=== PATIENT | female | born 1960 | race American Indian/Alaskan Native ===

== ENCOUNTER 2018-03-05 18:44 | Emergency (ER) | payer MEDICAID ==
[2018-03-05 18:44] VITALS: BMI 24.7
[2018-03-05 19:24] VITALS: BP 140/100; PULSE 102; RESP 18; TEMP 98.4; O2SAT 99
--- NOTE | 2018-03-05 21:14 | C.PDOC ---
History Of Present Illness 57 y/o female presents to the ED complaining of pain to the left shoulder radiating to the left intercostal area in upper back for 2 weeks. Seen by her PMD 2 days ago and given steroid injection to the shoulder joint. Patient reports this helped a little, and she was discharged home with flexeril 5mg PO. States pain has recurred so she is here requesting pain meds. Otherwise she denies any CP, SOB, trauma, numbness, tingling, or extremity weakness. Patient reports PMHx of Arthritis, and states this pain feels similar. Time Seen by Provider: 03/05/18 19:54 Chief Complaint (Nursing): Back Pain History Per: Patient History/Exam Limitations: no limitations Onset/Duration Of Symptoms: Days (x14) Current Symptoms Are (Timing): Still Present Quality Of Discomfort: "Pain" Associated Symptoms: None Past Medical History Reviewed: Historical Data, Nursing Documentation, Vital Signs Vital Signs: Last Vital Signs Temp 98.4 F 03/05/18 19:15 Pulse 102 H 03/05/18 19:15 Resp 18 03/05/18 19:15 BP 140/100 H 03/05/18 19:15 Pulse Ox 99 03/05/18 22:54 - Medical History PMH: HTN, Hyperlipidemia Denies: Depression Surgical History: Tonsillectomy Denies: Pacemaker - [facility] Procedures APPLICATION OF SPLINT (11/04/03) CONTRAST AORTOGRAM (02/12/12) CORONAR ARTERIOGR-2 CATH (02/12/12) INJECT/INFUSE NEC (08/11/14) LEFT HEART CARDIAC CATH (02/12/12) LT HEART ANGIOCARDIOGRAM (02/12/12) Family History: States: No Known Family Hx - Social History Hx Tobacco Use: No Hx Alcohol Use: Yes (SOCIAL) Hx Substance Use: Yes - Immunization History Hx Tetanus Toxoid Vaccination: Yes (2015) Hx Influenza Vaccination: No Hx Pneumococcal Vaccination: No Review Of Systems Cardiovascular: Negative for: Chest Pain Respiratory: Negative for: Shortness of Breath Musculoskeletal: Positive for: Shoulder Pain (left), Back Pain (upper) Skin: Negative for: Rash, Bruising Neurological: Negative for: Weakness, Numbness, Incoordination, Other (tingling) Physical Exam - Physical Exam Appears: Well, Non-toxic, No Acute Distress Skin: Normal Color, Warm, Dry Head: Atraumatic, Normacephalic Eye(s): bilateral: Normal Inspection Neck: Normal ROM Chest: Symmetrical Extremity: Normal ROM (with full ROM of left shoulder), Tenderness (on palpation of the left lateral shoulder, left trapezius, and extending to left intercostal area at mid-axillar line), Capillary Refill (less than 2 sec), No Deformity, No Swelling Pulses: Left Radial: Normal, Right Radial: Normal Neurological/Psych: Oriented x3, Normal Speech ED Course And Treatment O2 Sat by Pulse Oximetry: 99 (RA) Pulse Ox Interpretation: Normal Progress Note: Toradol IM given for pain control. On re-evaluation patient is resting comfortably and remains afebrile, AAOx3, in no distress. Advised patient to continue ibuprofen or naproxen along with her flexeril at home. 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 - Scribe Statement The provider has reviewed the documentation as recorded by the Scribe (Alka Alejandro) All medical record entries made by the Scribe were at my direction and personally dictated by me. I have reviewed the chart and agree that the record accurately reflects my personal performance of the history, physical exam, medical decision making, and the department course for this patient. I have also personally directed, reviewed, and agree with the discharge instructions and disposition.
== END 2018-03-05 19:54 | disposition left against medical advice (07) ==
LOC: SUPCPDRO 18:44 → C.ER 18:44
DX: G89.29 Other chronic pain (principal); M25.512 Pain in left shoulder; E78.5 Hyperlipidemia, unspecified; I10 Essential (primary) hypertension
CPT/HCPCS: 96372; 99282; J1885

== ENCOUNTER 2018-04-09 11:21 | Inpatient (IN) | payer MEDICAID ==
[2018-04-09 11:21] VITALS: BMI 24.7
[2018-04-09] MEDS ORDERED: Albuterol 0.083% Inhal Sol (2.5 mg/3 mL) UD IH STA (11:53)
[2018-04-09] MEDS ORDERED: Albuterol 0.083% Inhal Sol (2.5 mg/3 mL) UD ONE (12:09)
[2018-04-09 12:23] LABS: BASO # 0.1 K/uL (0.0-0.2); BASO % 0.6 % (0.0-2.0); EOS # 0.1 K/uL (0.0-0.7); EOS % 0.4 % (0.0-4.0); HEMOGLOBIN 13.1 g/dL (11.0-16.0); LYMPH # 3.3 K/uL (1.0-4.3); MEAN CELL VOLUME 81.2 fL (81.0-99.0); MEAN CORPUSCULAR HEMOGLOBIN 26.1 pg (27.0-31.0); MEAN CORPUSCULAR HGB CONC 32.2 g/dL (33.0-37.0); MEAN PLATELET VOLUME 7.9 fL (7.2-11.7); MONO # 0.5 K/uL (0.0-0.8); MONO % 3.4 % (0.0-10.0); NEUT # 11.2 K/uL (1.8-7.0); NEUT % 73.6 % (50.0-75.0); NRBC % 0.1 % (0.0-2.0); RBC 5.02 Mil/uL (3.80-5.20); RED CELL DISTRIBUTION WIDTH 15.7 % (11.5-14.5); WHITE BLOOD COUNT 15.2 K/uL (4.8-10.8)
[2018-04-09 12:34] LABS: ALB/GLOB RATIO 1.6 (1.0-2.1); ALBUMIN 4.4 g/dL (3.5-5.0); ALT/SGPT 55 U/L (9-52); AST/SGOT 29 U/L (14-36); BLOOD UREA NITROGEN 18 mg/dL (7-17); GFR NON-AFRICAN AMERICAN > 60
[2018-04-09] MEDS ORDERED: Albuterol-Ipratrop 3 mg / 0.5 (3 ml) UD INH STA (12:34)
[2018-04-09 12:36] LABS: ABG ALLEN TEST POS; ARTERIAL BLOOD GAS HCO3 21.9 mmol/L (21-28); ARTERIAL BLOOD GAS O2 SAT 99.6 % (95-98); ARTERIAL BLOOD GAS PCO2 30 mm/Hg (35-45); ARTERIAL BLOOD GAS PH 7.42 (7.35-7.45); ARTERIAL BLOOD GAS PO2 115 mm/Hg (80-100); ARTERIAL BLOOD GAS TCO2 20.4 mmol/L (22-28)
[2018-04-09 12:46] LABS: B-TYPE NATRIURETIC PEPTIDE 4540 pg/mL (0-900); CK-MB 3.23 ng/mL (0.0-3.38)
--- NOTE | 2018-04-09 12:50 | RAD ---
HISTORY: SOB COMPARISON: No prior TECHNIQUE: Chest, one view. FINDINGS: Examination limited by habitus. LUNGS: Moderate interstitial prominence may reflect infection or edema. Please note that chest x-ray has limited sensitivity for the detection of pulmonary masses. PLEURA: No significant pleural effusion identified. No definite pneumothorax . CARDIOVASCULAR: Cardiomegaly. Atherosclerotic calcification of the aortic knob. OSSEOUS STRUCTURES: No acute osseous abnormality identified. VISUALIZED UPPER ABDOMEN: Unremarkable. OTHER FINDINGS: None. IMPRESSION: Moderate interstitial prominence may reflect infection or edema. Cardiomegaly.
[2018-04-09] MEDS ORDERED: Albuterol-Ipratrop 3 mg / 0.5 (3 ml) UD ONE (13:08)
[2018-04-09] MEDS ORDERED: Iodixanol 320 MG/ML 100 ML BOTTLE IV ONE ×2 (13:24→14:08)
--- NOTE | 2018-04-09 13:38 | C.PDOC ---
History Of Present Illness 57 year old female, whose PMHx includes Asthma, presents to the ED for evaluation of shortness of breath and wheezing which began 1 week ago. Patient states she was traveling with a friend to [place] in a truck and her symptoms began when they were heading back to [place]. Patient also reports pleuritic chest pain. She was evaluated by her PMD yesterday and given albuterol and a "steroid shot" without improvement. Patient denies fever, chills, cough, palpitations. She reports social history of smoking. Time Seen by Provider: 04/09/18 11:43 Chief Complaint (Nursing): Shortness Of Breath History Per: Patient History/Exam Limitations: no limitations Onset/Duration Of Symptoms: Days Current Symptoms Are (Timing): Still Present Quality: "Pain" Current Respiratory Medications: See Home Med List, Albuterol Severity: Moderate Associated Symptoms: Chest Pain (pleuritic ). denies: Fever, Chills, Bloody Cough, Productive Cough Additional History Per: Patient Past Medical History Reviewed: Historical Data, Nursing Documentation, Vital Signs Vital Signs: Last Vital Signs Temp 97.6 F 04/09/18 11:41 Pulse 125 H 04/09/18 13:03 Resp 26 H 04/09/18 13:03 BP 138/87 04/09/18 13:03 Pulse Ox 96 04/09/18 13:03 - Medical History PMH: HTN, Hyperlipidemia Surgical History: Tonsillectomy - [facility] Procedures APPLICATION OF SPLINT (11/04/03) CONTRAST AORTOGRAM (02/12/12) CORONAR ARTERIOGR-2 CATH (02/12/12) INJECT/INFUSE NEC (08/11/14) LEFT HEART CARDIAC CATH (02/12/12) LT HEART ANGIOCARDIOGRAM (02/12/12) Family History: States: No Known Family Hx - Social History Hx Tobacco Use: No Hx Alcohol Use: Yes (SOCIAL) Hx Substance Use: Yes - Immunization History Hx Tetanus Toxoid Vaccination: Yes (2016) Hx Influenza Vaccination: No Hx Pneumococcal Vaccination: No Review Of Systems Constitutional: Negative for: Fever, Chills Cardiovascular: Positive for: Chest Pain (pleuritic ). Negative for: Palpitations Respiratory: Positive for: Shortness of Breath, Wheezing. Negative for: Cough, Sputum Gastrointestinal: Negative for: Nausea, Vomiting, Abdominal Pain Genitourinary: Negative for: Dysuria, Hematuria Skin: Negative for: Rash Neurological: Negative for: Headache, Dizziness Physical Exam - Physical Exam Appears: Well, Non-toxic, No Acute Distress, Other (mildly tachypneic) Skin: Normal Color, Warm, Dry Head: Atraumatic, Normacephalic Eye(s): bilateral: Normal Inspection Oral Mucosa: Moist Neck: Supple Cardiovascular: Rhythm Regular, No Murmur, Other (tachycardic ) Respiratory: Accessory Muscle Use (mild ), Rales (bilaterally ), Wheezing (expiratory, bilaterally ), Other ((+) conversational dyspnea) Gastrointestinal/Abdominal: Normal Exam, Bowel Sounds, Soft, No Tenderness Extremity: Normal ROM, Pedal Edema (trace pitting edema to bilateral lower extremities ), No Calf Tenderness Pulses: Left Dorsalis Pedis: Normal, Right Dorsalis Pedis: Normal Neurological/Psych: Oriented x3 ED Course And Treatment - Laboratory Results Result Diagrams: 04/14/18 07:35 04/14/18 07:35 ECG: Interpreted By Me, Viewed By Me ECG Rhythm: Sinus Tachycardia ECG Interpretation: Abnormal Interpretation Of ECG: Sinus Tachycardia at rate 120bpm. Normal axis. T wave inversion in leads I, II, AVF, V5 and V6. No acute ST changes. Compared to EKG from 03/05/18; T wave inversions in leads I, II, and AVF are new. Rate From EC O2 Sat by Pulse Oximetry: 96 (on RA) Pulse Ox Interpretation: Normal - Other Rad CXR X-Ray: Viewed By Me, Read By Radiologist Interpretation: HISTORY: SOB. COMPARISON: No prior. TECHNIQUE: Chest, one view. FINDINGS: Examination limited by habitus. LUNGS: Moderate interstitial prominence may reflect infection or edema. Please note that chest x-ray has limited sensitivity for the detection of pulmonary masses. PLEURA: No significant pleural effusion identified. No definite pneumothorax . CARDIOVASCULAR: Cardiomegaly. Atherosclerotic calcification of the aortic knob. OSSEOUS STRUCTURES: No acute osseous abnormality identified. VISUALIZED UPPER ABDOMEN: Unremarkable. OTHER FINDINGS: None. IMPRESSION: Moderate interstitial prominence may reflect infection or edema. Cardiomegaly. - CT Scan/US CTA chest Other Rad Studies (CT/US): Read By Radiologist, Radiology Report Reviewed CT/US Interpretation: Date of service: 04/09/2018. CTA chest PE protocol. Indication: DYSPNEA, ELEVATED DDIMER, R/O PE. Technique: Contiguous axial images were obtained through the chest with intravenous contrast enhancement. Sagittal and coronal reconstructions were generated and reviewed. This CT exam was performed using 1 or more of the following dose reduction techniques: Automated exposure control, adjustment of the MAA and/or kV according to patient size, and/or use of iterative reconstruction technique. IV contrast: 100 cc Visipaque IV 320. . Radiation dose (DLP): 380.73 MGy-cm. Comparison: Chest x- ray performed 04/09/18. Findings: Visualized portions of the inferior thyroid gland appear unremarkable. The mediastinal and hilar vascular structures appear within normal limits. Mild cardiomegaly. Small pericardial effusion. No large central or segmental pulmonary embolus evident. Mild centrilobular emphysema. Small to moderate bilateral pleural effusions and associated compressive consolidations. No pneumothorax. 1.3 x 0.8 cm lobulated nodule within the inferior aspect of the right upper lobe abutting the fissure. Question presence of punctate calcification which would suggest benign hamartoma. Mild atherosclerotic calcifications of the aorta. Limited visualized portions of the upper abdomen: 3.9 x 3.7 cm low-density lesion measuring approximately 10 HU in the left hepatic lobe consistent with a cyst. Additional too small to jose cterize hepatic hypodensities statistically likely cysts or hemangiomas. Mild degenerative changes of the spine. Impression: Mild cardiomegaly. Small pericardial effusion. No large central or segmental pulmonary embolus evident. Mild centrilobular emphysema. Small to moderate bilateral pleural effusions and associated compressive consolidations. 1.3 x 0.8 cm lobulated nodule within the inferior aspect of the right upper lobe abutting the fissure. Question presence of punctate calcification which would suggest benign hamartoma. Recommend correlation with prior outside imaging if available. Further evaluation may be considered in the proper clinical setting with PET CT, follow-up CT in 3 months, 9 months, and 24 months, or if indicated biopsy. Limited visualized portions of the upper abdomen: 3.9 x 3.7 cm low-density lesion measuring approximately 10 HU in the left hepatic lobe consistent with a cyst. Additional too small to characterize hepatic hypodensities statistically likely cysts or hemangiomas. Progress Note: Bloodwork, CXR, CT Angio chest, EKG ordered and reviewed. Patient given Albuterol INH, Lasix IVP, and Solu-Medrol IVP. Reevaluation Time: 16:45 Reassessment Condition: Improved (On reassessment, patient still c/o feeling SOB, only minimally improved. 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 Disposition - Disposition Disposition: HOSPITALIZED Disposition Time: 16:58 Condition: STABLE - Clinical Impression Clinical Impression: COPD exacerbation, Pleural effusion, Pericardial effusion, Dyspnea, CHF (congestive heart failure) - Scribe Statement The provider has reviewed the documentation as recorded by the Scribe (Sendy Christian) Provider Attestation: All medical record entries made by the Scribe were at my direction and personally dictated by me. I have reviewed the chart and agree that the record accurately reflects my personal performance of the history, physical exam, medical decision making, and the department course for this patient. I have also personally directed, reviewed, and agree with the discharge instructions and disposition. Decision To Admit - Pt Status Changed To: Hospital Disposition Of: Inpatient - Admit Certification Admit to Inpatient:: After my assessment, the patient will require hospitalization for at least two midnights. This is because of the severity of symptoms shown, intensity of services needed, and/or the medical risk in this patient being treated as an outpatient. - InPatient: Physician Admission Certification: I certify that this patient requires 2 or more midnights of care for the following reason:: see notes - . Bed Request Type: Telemetry Admitting Physician: Lennox Gutierrez Patient Diagnosis: COPD exacerbation, CHF (congestive heart failure), Dyspnea, Pleural effusion, Pericardial effusion
[2018-04-09 14:46] VITALS: RESP 20
--- NOTE | 2018-04-09 16:30 | CT ---
Date of service: 04/09/2018 CTA chest PE protocol Indication: DYSPNEA, ELEVATED DDIMER, R/O PE Technique: Contiguous axial images were obtained through the chest with intravenous contrast enhancement. Sagittal and coronal reconstructions were generated and reviewed. This CT exam was performed using 1 or more of the following dose reduction techniques: Automated exposure control, adjustment of the MAA and/or kV according to patient size, and/or use of iterative reconstruction technique. IV contrast: 100 cc Visipaque IV 320 Radiation dose (DLP): 380.73 MGy-cm. Comparison: Chest x-ray performed 04/09/18 Findings: Visualized portions of the inferior thyroid gland appear unremarkable. The mediastinal and hilar vascular structures appear within normal limits. Mild cardiomegaly. Small pericardial effusion. No large central or segmental pulmonary embolus evident. Mild centrilobular emphysema. Small to moderate bilateral pleural effusions and associated compressive consolidations. No pneumothorax. 1.3 x 0.8 cm lobulated nodule within the inferior aspect of the right upper lobe abutting the fissure. Question presence of punctate calcification which would suggest benign hamartoma. Mild atherosclerotic calcifications of the aorta. Limited visualized portions of the upper abdomen: 3.9 x 3.7 cm low-density lesion measuring approximately 10 HU in the left hepatic lobe consistent with a cyst. Additional too small to characterize hepatic hypodensities statistically likely cysts or hemangiomas. Mild degenerative changes of the spine. Impression: Mild cardiomegaly. Small pericardial effusion. No large central or segmental pulmonary embolus evident. Mild centrilobular emphysema. Small to moderate bilateral pleural effusions and associated compressive consolidations. 1.3 x 0.8 cm lobulated nodule within the inferior aspect of the right upper lobe abutting the fissure. Question presence of punctate calcification which would suggest benign hamartoma. Recommend correlation with prior outside imaging if available. Further evaluation may be considered in the proper clinical setting with PET CT, follow-up CT in 3 months, 9 months, and 24 months, or if indicated biopsy. Limited visualized portions of the upper abdomen: 3.9 x 3.7 cm low-density lesion measuring approximately 10 HU in the left hepatic lobe consistent with a cyst. Additional too small to characterize hepatic hypodensities statistically likely cysts or hemangiomas.
[2018-04-09] MEDS ORDERED: Albuterol 0.083% Inhal Sol (2.5 mg/3 mL) UD IH PRN ×2 (18:17→20:45)
[2018-04-09] MEDS ORDERED: Pneumococcal 23-Valent Vaccine IM ONE (20:53)
[2018-04-09] MEDS ORDERED: Influenza Vaccine 60 MCG/0.5 ML SYR (3 yr & up) IM ONE (21:05)
[2018-04-09] MEDS ORDERED: Albuterol HFA 90 mcg/actuation (8 g) INH PRN ×2 (21:58→22:14)
--- NOTE | 2018-04-10 03:46 | CP.PCM.PCO ---
Addendum entered and electronically signed by Hernesto Butler 04/10/18 05:47: House Doctor Note. Paged for run of V-tach on monitor. Upon examination patient had no complaints with stable vitals w/ BP 130s/80s HR 110. EKG was ordered. EKG showed tachycardia. No further V-tach observed. Original Note:
[2018-04-10] MEDS: Albuterol 0.083% Inhal Sol (2.5 mg/3 mL) UD IH SCH ×3 (07:55→19:15)
[2018-04-10] MEDS ORDERED: Albuterol HFA 90 mcg/actuation (8 g) INH SCH (08:00)
[2018-04-10] MEDS: (Novolog) Insulin Aspart, Recombinant 100 u/ml 10 ml vial SC SCH ×4 (08:04→21:27)
[2018-04-10] MEDS: Enoxaparin 40 mg Syringe SC SCH (11:10)
--- NOTE | 2018-04-10 11:32 | CP.PCM.PN ---
Subjective - Date & Time of Evaluation Date of Evaluation: 04/10/18 Time of Evaluation: 11:32 - Subjective Subjective: This patient is a 57 year old female with a past medical history of impaired glucose tolerance, HTN, HLD, and CVA w/ left sided residual weakness who presented with complaints of worsening shortness of breath for 1 week. Patient stated she smelled some mold in the refrigerator and the next day started to feel short of breath. She denies any sick contacts or orthopnea. She did travel to [place] recently with a friend. Patient does admit to a 43 year smoking history. She smoked about a half a pack a day since she was 14 years old and recently reduced her smoking to about 4 cigarettes daily. Patient was evaluated by her PMD and was prescribed albuterol and given a steroid shot without improvement of her symptoms. Patient was also given steroid tablets but was told not to take it by the pharmacist. Today she states her shortness of breath is much improved. ROS POSITIVE: SOB, NEGATIVE: Sick contacts, orthopnea, fever, chills, chest pain, palpitations, abdominal pain, n/v changes in bowel habits, urinary symptoms. PMHx: As stated above PSHx: Cardiac Cath (2011) Allergeis: NKDA Social Hx: 21 pack years. FamHx: Son - [place], CAD. Objective - Vital Signs/Intake and Output Vital Signs (last 24 hours): Temp Pulse Resp BP Pulse Ox 97.7 F 119 H 20 138/91 H 94 L 04/10/18 07:10 04/10/18 07:10 04/10/18 07:10 04/10/18 07:10 04/10/18 07:10 - Medications Medications: Current Medications Albuterol (Ventolin Hfa 90 Mcg/Actuation (8 G)) 2 puff INH RQ12 PRN PRN Reason: Shortness of Breath Stop: 04/13/18 22:14 Albuterol Sulfate (Albuterol 0.083% Inhal Emma (2.5 Mg/3 Ml) Ud) 2.5 mg IH RQ4 [facility] Last Admin: 04/10/18 07:55 Dose: 2.5 mg Amitriptyline HCl (Elavil) 25 mg PO DAILY [facility] Last Admin: 04/10/18 10:26 Dose: 25 mg Amlodipine Besylate (Norvasc) 10 mg PO DAILY [facility] Last Admin: 04/10/18 10:26 Dose: 10 mg Aspirin (Aspirin Chewable) 81 mg PO DAILY [facility] Last Admin: 04/10/18 10:26 Dose: 81 mg Cyclobenzaprine HCl (Flexeril) 5 mg PO BID [facility] Last Admin: 04/10/18 10:26 Dose: 5 mg Enoxaparin Sodium (Lovenox) 40 mg SC DAILY [facility] Ferrous Sulfate (Feosol) 325 mg PO DAILY [facility] Last Admin: 04/10/18 10:26 Dose: 325 mg Insulin Aspart (Novolog) 0 unit SC ACHS [facility]; Protocol Last Admin: 04/10/18 08:04 Dose: 1 unit Metformin HCl (Glucophage) 500 mg PO BIDCC [facility] Last Admin: 04/10/18 10: Dose: 500 mg Methylprednisolone (Solu-Medrol) 40 mg IV Q6 [facility] Last Admin: 04/10/18 00:01 Dose: 40 mg Rosuvastatin Calcium (Crestor) 10 mg PO HS [facility] Zolpidem Tartrate (Ambien) 5 mg PO HS PRN PRN Reason: Insomnia - Labs Labs: 04/09/18 12:16 04/09/18 12:16 - Constitutional Appears: Non-toxic, No Acute Distress - Head Exam Head Exam: ATRAUMATIC, NORMAL INSPECTION, NORMOCEPHALIC - Eye Exam Eye Exam: EOMI - ENT Exam ENT Exam: Mucous Membranes Moist - Neck Exam Neck Exam: absent: Lymphadenopathy - Respiratory Exam Respiratory Exam: Clear to Ausculation Bilateral, NORMAL BREATHING PATTERN. absent: Accessory Muscle Use, Decreased Breath Sounds, Rhonchi, Wheezes, Stridor - Cardiovascular Exam Cardiovascular Exam: Tachycardia, REGULAR RHYTHM, +S1, +S2. absent: Clicks, JVD, Rubs, Murmur - GI/Abdominal Exam GI & Abdominal Exam: Soft, Normal Bowel Sounds. absent: Tenderness - Extremities Exam Extremities Exam: absent: Pedal Edema Additional comments: Left Foot Drop with Brace. - Neurological Exam Neurological Exam: Abnormal Gait (Uses wheelchair. ) - Psychiatric Exam Psychiatric exam: Normal Affect, Normal Mood - Skin Skin Exam: Dry, Intact, Normal Color, Warm Assessment and Plan - Assessment and Plan (Free Text) Assessment: 57 year old female with a past medical history of impaired glucose tolerance, HTN, HLD, and CVA w/ left sided residual weakness who presented with complaints of worsening shortness of breath for [address] scan on admission showed centrilobar emyphyseamatous changes. Patient admitted for evaluation and treatment of SOB likely 2/2 to COPD exacerbation. Plan: Shortness of Breath Likely 2/2 to COPD exacerbation. CXR (Admission): Moderate interstitial prominence may reflect infection or ed lourdes. Cardiomegaly. Chest CT (Admission): -Mild cardiomegaly. Small pericardial effusion. -No large central or segmental pulmonary embolus evident. -Mild centrilobular emphysema. Small to moderate bilateral pleural effusions and associated compressive consolidations. -1.3 x 0.8 cm lobulated nodule within the inferior aspect of the right upper lobe abutting the fissure. Question presence of punctate calcification which would suggest benign hamartoma. Recommend correlation with prior outside imaging if available. Further evaluation may be considered in the proper clinical setting with PET CT, follow-up CT in 3 months, 9 months, and 24 months, or if indicated biopsy. -Limited visualized portions of the upper abdomen: 3.9 x 3.7 cm low-density lesion measuring approximately 10 HU in the left hepatic lobe consistent with a cyst. Additional too small to characterize hepatic hypodensities statistically likely cysts or hemangiomas. EKG (Adm) Sinus tachycardia with ST and T wave changes: ECHO (04/10/18): PENDING READ Meds: Ventolin 2 puffs RQ12H PRN Albuterol Sulfate 2.5mg IH Q4 [facility] Solumedrol 40mg IV Q6H Hyperlipidemia Home Meds: Crestor 10 HS ASA 81 Daily Impaired Glucose Tolerance Home Meds: Metformin 500mg BID Meds: Insulin Sliding Scale Hypertension Home Meds: 10mg PO Daily Hx of Anemia Home Meds: Feosol 325mg PO Daily Tobacco Dependence Meds: Nicotine Patch. Insomnia Meds: Ambien 5mg PO HS PRN Proph Lovenox Heart Healthy Diet Dispo: Patient to be discharged PENDING results of ECHO Patient discussed with Dr. Matt Crump, PGY-2
--- NOTE | 2018-04-10 13:59 | CP.PCM.DIS ---
Provider - Provider Date of Admission: 04/09/18 16:58 Attending physician: Lennox Gutierrez MD Hospital Course - Lab Results Lab Results: Most Recent Lab Values WBC 15.2 K/uL (4.8-10.8) H 04/09/18 12:16 RBC 5.02 Mil/uL (3.80-5.20) 04/09/18 12:16 Hgb 13.1 g/dL (11.0-16.0) 04/09/18 12:16 Hct 40.8 % (34.0-47.0) 04/09/18 12:16 MCV 81.2 fL (81.0-99.0) 04/09/18 12:16 MCH 26.1 pg (27.0-31.0) L 04/09/18 12:16 MCHC 32.2 g/dL (33.0-37.0) L 04/09/18 12:16 RDW 15.7 % (11.5-14.5) H 04/09/18 12:16 Plt Count 436 K/uL (130-400) H 04/09/18 12:16 MPV 7.9 fL (7.2-11.7) 04/09/18 12:16 Neut % (Auto) 73.6 % (50.0-75.0) 04/09/18 12:16 Lymph % (Auto) 22.0 % (20.0-40.0) 04/09/18 12:16 Fisher % (Auto) 3.4 % (0.0-10.0) 04/09/18 12:16 Eos % (Auto) 0.4 % (0.0-4.0) 04/09/18 12:16 Baso % (Auto) 0.6 % (0.0-2.0) 04/09/18 12:16 Neut # (Auto) 11.2 K/uL (1.8-7.0) H 04/09/18 12:16 Lymph # (Auto) 3.3 K/uL (1.0-4.3) 04/09/18 12:16 Fisher # (Auto) 0.5 K/uL (0.0-0.8) 04/09/18 12:16 Eos # (Auto) 0.1 K/uL (0.0-0.7) 04/09/18 12:16 Baso # (Auto) 0.1 K/uL (0.0-0.2) 04/09/18 12:16 D-Dimer, Quantitative 331 ng/mlDDU (0-243) H 04/09/18 12:16 Puncture Site Rr 04/09/18 12:32 pCO2 30 mm/Hg (35-45) L 04/09/18 12:32 pO2 115 mm/Hg (80-100) H 04/09/18 12:32 HCO3 21.9 mmol/L (21-28) 04/09/18 12:32 ABG pH 7.42 (7.35-7.45) 04/09/18 12:32 ABG Total CO2 20.4 mmol/L (22-28) L 04/09/18 12:32 ABG O2 Saturation 99.6 % (95-98) H 04/09/18 12:32 ABG Base Excess -3.9 mmol/L (-2.0-3.0) L 04/09/18 12:32 Pardeep Test Pos 04/09/18 12:32 ABG Potassium 3.8 mmol/L (3.6-5.2) 04/09/18 12:32 Sodium 145.0 mmol/l (132-148) 04/09/18 12:32 Chloride 107.0 mmol/L (98-107) 04/09/18 12:32 Glucose 145 mg/dl (65-105) H 04/09/18 12:32 Lactate 1.5 mmol/L (0.7-2.1) 04/09/18 12:32 Sodium 144 mmol/L (132-148) 04/09/18 12:16 Potassium 4.4 mmol/L (3.6-5.2) 04/09/18 12:16 Chloride 107 mmol/L (98-107) 04/09/18 12:16 Carbon Dioxide 23 mmol/L (22-30) 04/09/18 12:16 Anion Gap 19 (10-20) 04/09/18 12:16 BUN 18 mg/dL (7-17) H 04/09/18 12:16 Creatinine 0.7 mg/dL (0.7-1.2) 04/09/18 12:16 Est GFR ( Amer) > 60 04/09/18 12:16 Est GFR (Non-Af Amer) > 60 04/09/18 12:16 POC Glucose (mg/dL) 198 mg/dL (65-110) H 04/10/18 06:21 Random Glucose 134 mg/dL (65-105) H 04/09/18 12:16 Calcium 9.0 mg/dl (8.6-10.4) 04/09/18 12:16 Total Bilirubin 0.7 mg/dL (0.2-1.3) 04/09/18 12:16 AST 29 U/L (14-36) 04/09/18 12:16 ALT 55 U/L (9-52) H 04/09/18 12:16 Alkaline Phosphatase 93 U/L (38-126) 04/09/18 12:16 Total Creatine Kinase 59 U/L (30-135) 04/09/18 12:16 CK-MB (Mass) 3.23 ng/mL (0.0-3.38) 04/09/18 12:16 Troponin I 0.0490 ng/mL (0.00-0.120) 04/09/18 12:16 NT-Pro-B Natriuret Pep 4540 pg/mL (0-900) H 04/09/18 12:16 Total Protein 7.1 g/dL (6.3-8.3) 04/09/18 12:16 Albumin 4.4 g/dL (3.5-5.0) 04/09/18 12:16 Globulin 2.7 gm/dL (2.2-3.9) 04/09/18 12:16 Albumin/Globulin Ratio 1.6 (1.0-2.1) 04/09/18 12:16 Arterial Blood Potassium 3.8 mmol/L (3.6-5.2) 04/09/18 12:32 Discharge Exam - Head Exam Head Exam: ATRAUMATIC, NORMAL INSPECTION, NORMOCEPHALIC Discharge Plan - Follow Up Plan Condition: GOOD Disposition: HOME/ ROUTINE Referrals: Lennox Gutierrez MD [Staff Provider] -
--- NOTE | 2018-04-10 16:34 | CARD ---
APPROVED REPORT Date of service: 04/10/2018 EXAM: Two-dimensional and M-mode echocardiogram with Doppler and color Doppler. Other Information Quality : GoodRhythm : INDICATION Pericardial Effusion Dyspnea Pleural Effusion Congestive Heart Failure COPD RISK FACTORS Hypertension 2D DIMENSIONS IVSd1.0 (0.7-1.1cm)LVDd5.7 (3.9-5.9cm) PWd1.1 (0.7-1.1cm)LA [id number] (18-58mL) LVDs5.3 (2.5-4.0cm)FS (%) 6.7 % LVEF (%)14.7 (>50%)LVEF (Smith's)16.40 % IVC0.00 cm M-Mode DIMENSIONS RVDd2.78 (2.1-3.2cm)Left Atrium (MM)4.42 (2.5-4.0cm) IVSd0.80 (0.7-1.1cm)Aortic Root2.71 (2.2-3.7cm) LVDd6.46 (4.0-5.6cm)Aortic Cusp Exc.2.09 (1.5-2.0cm) PWd0.80 (0.7-1.1cm)FS (%) 5 % LVDs6.11 (2.0-3.8cm)TAPSE1.8 cm LVEF (%)15 (>50%) Mitral Valve MV E Lgoosjwo122.2cm/sE/A ratio0.5ZELC171.49 cm/s TDI Lateral E' Peak V5.38cm/sMedial E' Peak V6.61cm/sE/Lateral E'23.3 E/Medial E'18.9 Tricuspid Valve TR Peak [id number]/sTR Peak Gr.[id number] LEFT VENTRICLE The Left Ventricle is borderline dilated. There is normal left ventricular wall thickness. The systolic function is severely impaired. There is global hypokinesis of the left ventricle. No left ventricle thrombus noted on this study. RIGHT VENTRICLE The right ventricle is borderline dilated. There is normal right ventricular wall thickness. Systolic function is borderline reduced. ATRIA The left atrium is mildly dilated. The right atrium size is normal. AORTIC VALVE The aortic valve is mildly thickened. There is trace aortic regurgitation. There is no aortic valvular stenosis. MITRAL VALVE The mitral valve is mildly thickened. There is no mitral valve stenosis. Mitral regurgitation is moderate. TRICUSPID VALVE The tricuspid valve is normal in structure. There is mild tricuspid regurgitation. There is mild to moderate pulmonary hypertension. PULMONIC VALVE The pulmonary valve is normal in structure. There is no pulmonic valvular regurgitation. GREAT VESSELS The aortic root is normal in size. PERICARDIAL EFFUSION There is a small circumferential pericardial effusion. <Conclusion> The Left Ventricle is borderline dilated. There is normal left ventricular wall thickness. The systolic function is severely impaired. There is global hypokinesis of the left ventricle. No left ventricle thrombus noted on this study. Mitral regurgitation is moderate. There is mild tricuspid regurgitation. There is mild to moderate pulmonary hypertension. There is a small circumferential pericardial effusion.
--- NOTE | 2018-04-10 19:47 | CARD ---
APPROVED REPORT Date of service: 04/09/2018 EKG Measurement Heart [id number] <Conclusion> Sinus tachycardia Possible Left atrial enlargement Possible Anterior infarct, age undetermined ST & T wave abnormality, consider inferolateral ischemia Abnormal ECG
[2018-04-11] MEDS: Albuterol 0.083% Inhal Sol (2.5 mg/3 mL) UD IH SCH ×2 (00:55→04:36)
[2018-04-11] MEDS: Albuterol 0.083% Inhal Sol (2.5 mg/3 mL) UD INH PRN ×2 (08:00→19:16)
[2018-04-11] MEDS: (Novolog) Insulin Aspart, Recombinant 100 u/ml 10 ml vial SC SCH ×4 (08:15→21:39)
[2018-04-11] MEDS: Enoxaparin 40 mg Syringe SC SCH (10:54)
[2018-04-11 11:03] LABS: BASO % 0.1 % (0.0-2.0); HEMOGLOBIN 12.3 g/dL (11.0-16.0); LYMPH # 0.7 K/uL (1.0-4.3); LYMPH % 4.7 % (20.0-40.0); MEAN CELL VOLUME 81.3 fL (81.0-99.0); MEAN CORPUSCULAR HEMOGLOBIN 26.1 pg (27.0-31.0); MEAN CORPUSCULAR HGB CONC 32.1 g/dL (33.0-37.0); MEAN PLATELET VOLUME 8.4 fL (7.2-11.7); MONO # 0.4 K/uL (0.0-0.8); MONO % 2.7 % (0.0-10.0); NEUT # 13.2 K/uL (1.8-7.0); NEUT % 92.5 % (50.0-75.0); PLATELET COUNT 429 K/uL (130-400); RBC 4.71 Mil/uL (3.80-5.20); RED CELL DISTRIBUTION WIDTH 16.2 % (11.5-14.5); WHITE BLOOD COUNT 14.3 K/uL (4.8-10.8)
[2018-04-11 11:38] LABS: ALB/GLOB RATIO 1.6 (1.0-2.1); ALT/SGPT 34 U/L (9-52); AST/SGOT 24 U/L (14-36); BLOOD UREA NITROGEN 24 mg/dL (7-17); CALCIUM 9.3 mg/dl (8.6-10.4); GFR NON-AFRICAN AMERICAN > 60
[2018-04-11 12:02] LABS: LYMPHOCYTE 4 % (20-40); MONOCYTE 1 % (0-10); NEUTROPHIL 95 % (50-75); PLATELET ESTIMATE NORMAL (NORMAL); TOTAL CELLS COUNTED 100
--- NOTE | 2018-04-11 12:28 | CP.PCM.CON ---
<John Hoffman - Last Filed: 04/11/18 14:42> History of Present Illness - History of Present Illness History of Present Illness: John Hoffman, PGY-[address] Lucio Ms. Luu is a 57 year old female with a past medical history of HTN, HLD, and CVA w/ left sided residual weakness who presented with complaints of worsening shortness of breath for 2 weeks. Patient endorses shortness of breath after walking up a few steps and 3 blocks and reports waking up at 2 am due to orthopnea. Patient admits to an extensive smoking history for 40+ years,and she smokes 5 cigarettes daily. Patient reports no current chest pain, palpitations, leg swelling. Patient reports her 38 year old son had a recent heart attack. Past Patient History - Infectious Disease Hx of Infectious Diseases: None - Tetanus Immunizations Tetanus Immunization: Unknown - Past Social History Smoking Status: Light Smoker < 10 Cigarettes Daily - CARDIAC Hx Hypertension: Yes - PULMONARY Hx Asthma: Yes - NEUROLOGICAL Hx Paralysis: No Other/Comment: stroke 08/10/16 result L drop foot - HEENT Hx HEENT Problems: No - RENAL Hx Chronic Kidney Disease: No - ENDOCRINE/METABOLIC Hx Diabetes Mellitus Type 2: Yes - HEMATOLOGICAL/ONCOLOGICAL Hx Blood Transfusions: No Hx Blood Transfusion Reaction: No - INTEGUMENTARY Hx Dermatological Problems: No - MUSCULOSKELETAL/RHEUMATOLOGICAL Hx Falls: No - GASTROINTESTINAL Hx Gastrointestinal Disorders: No - GENITOURINARY/GYNECOLOGICAL Hx Urinary Tract Infection: Yes - PSYCHIATRIC Hx Depression: No Hx Substance Use: Yes - SURGICAL HISTORY Hx Tonsillectomy: Yes - ANESTHESIA Hx Anesthesia: Yes Hx Anesthesia Reactions: No Hx Malignant Hyperthermia: No Has any member of the family had a problem w/ anesthesia?: No Meds Home Medications: Home Medication List Medication Instructions Recorded Confirmed Type Albuterol/Ipratropium [Combivent 1 puff IH DAILY 30 Days inhaler 04/10/18 Rx Respimat] Nicotine 14 mg/24 hr [Nicoderm CQ] 1 patch TD DAILY #30 patch 04/10/18 Rx Allergies/Adverse Reactions: Allergies Allergy/AdvReac Type Severity Reaction Status Date / Time No Known Allergies Allergy Verified 04/09/18 11:34 - Medications Medications: Current Medications Albuterol (Ventolin Hfa 90 Mcg/Actuation (8 G)) 2 puff INH RQ12 PRN PRN Reason: Shortness of Breath Stop: 04/13/18 22:14 Albuterol Sulfate (Albuterol 0.083% Inhal Emma (2.5 Mg/3 Ml) Ud) 2.5 mg INH RQ4 PRN PRN Reason: Shortness of Breath Last Admin: 04/11/18 08:00 Dose: 2.5 mg Amitriptyline HCl (Elavil) 25 mg PO DAILY [facility] Last Admin: 04/11/18 10:55 Dose: 25 mg Amlodipine Besylate (Norvasc) 10 mg PO DAILY [facility] Last Admin: 04/11/18 10:54 Dose: 10 mg Aspirin (Aspirin Chewable) 81 mg PO DAILY [facility] Last Admin: 04/11/18 10:54 Dose: 81 mg Carvedilol (Coreg) 3.125 mg PO BID [facility] Cyclobenzaprine HCl (Flexeril) 5 mg PO BID [facility] Last Admin: 04/11/18 10:55 Dose: 5 mg Enoxaparin Sodium (Lovenox) 40 mg SC DAILY [facility] Last Admin: 04/11/18 10:54 Dose: 40 mg Ferrous Sulfate (Feosol) 325 mg PO DAILY [facility] Last Admin: 04/11/18 10:54 Dose: 325 mg Insulin Aspart (Novolog) 0 unit SC [facility]; Protocol Last Admin: 04/11/18 08:15 Dose: 2 unit Lisinopril (Zestril) 5 mg PO DAILY [facility] Metformin HCl (Glucophage) 500 mg PO BIDCC [facility] Last Admin: 04/11/18 08:22 Dose: 500 mg Methylprednisolone (Solu-Medrol) 40 mg IV Q6 [facility] Last Admin: 04/11/18 06:38 Dose: 40 mg Nicotine (Nicoderm Cq) 1 patch TD DAILY [facility] Last Admin: 04/11/18 10:54 Dose: 1 patch Rosuvastatin Calcium (Crestor) 10 mg PO HS [facility] Last Admin: 04/10/18 21:33 Dose: 10 mg Zolpidem Tartrate (Ambien) 5 mg PO HS PRN PRN Reason: Insomnia Last Admin: 04/10/18 21:33 Dose: 5 mg Physical Exam - Constitutional Appears: Well, Non-toxic, No Acute Distress - Head Exam Head Exam: ATRAUMATIC, NORMOCEPHALIC - Eye Exam Eye Exam: EOMI, Normal appearance - Neck Exam Neck exam: Positive for: Normal Inspection. Negative for: Tenderness - Respiratory Exam Respiratory Exam: Clear to Auscultation Bilateral, NORMAL BREATHING PATTERN. absent: Rales, Rhonchi, Wheezes - Cardiovascular Exam Cardiovascular Exam: Gallop (+S3), +S1, +S2 - GI/Abdominal Exam GI & Abdominal Exam: Normal Bowel Sounds, Soft. absent: Tenderness - Extremities Exam Extremities exam: Positive for: full ROM, normal inspection Results - Vital Signs Recent Vital Signs: Last Vital Signs Temp 98.0 F 04/11/18 08:54 Pulse 78 04/11/18 08:54 Resp 20 04/11/18 08:54 BP 127/82 04/11/18 08:54 Pulse Ox 97 04/11/18 08:54 - Labs Result Diagrams: 04/11/18 11:00 04/11/18 11:00 Labs: Laboratory Results - last 24 hr 04/10/18 04/10/18 04/10/18 11:45 16:43 21:06 WBC RBC Hgb Hct MCV MCH MCHC RDW Plt Count MPV Neut % (Auto) Lymph % (Auto) [place] % (Auto) Eos % (Auto) Baso % (Auto) Neut # (Auto) Lymph # (Auto) [place] # (Auto) Eos # (Auto) Baso # (Auto) Neutrophils % (Manual) Lymphocytes % (Manual) Monocytes % (Manual) Platelet Estimate Sodium Potassium Chloride Carbon Dioxide Anion Gap BUN Creatinine Est GFR ( Amer) Est GFR (Non-Af Amer) POC Glucose (mg/dL) 309 H 256 H 294 H Random Glucose Calcium Total Bilirubin AST ALT Alkaline Phosphatase Troponin I Total Protein Albumin Globulin Albumin/Globulin Ratio 04/11/18 04/11/18 04/11/18 06:31 11:00 11:00 WBC 14.3 H RBC 4.71 Hgb 12.3 Hct 38.3 MCV 81.3 MCH 26.1 L MCHC 32.1 L RDW 16.2 H Plt Count 429 H MPV 8.4 Neut % (Auto) 92.5 H Lymph % (Auto) 4.7 L [place] % (Auto) 2.7 Eos % (Auto) 0.0 Baso % (Auto) 0.1 Neut # (Auto) 13.2 H Lymph # (Auto) 0.7 L [place] # (Auto) 0.4 Eos # (Auto) 0.0 Baso # (Auto) 0.0 Neutrophils % (Manual) 95 H Lymphocytes % (Manual) 4 L Monocytes % (Manual) 1 Platelet Estimate Normal Sodium 140 Potassium 4.3 Chloride 104 Carbon Dioxide 22 Anion Gap 19 BUN 24 H Creatinine 0.7 Est GFR ( Amer) > 60 Est GFR (Non-Af Amer) > 60 POC Glucose (mg/dL) 246 H Random Glucose 314 H Calcium 9.3 Total Bilirubin 0.4 AST 24 ALT 34 Alkaline Phosphatase 84 Troponin I 0.0150 Total Protein 6.4 Albumin 4.0 Globulin 2.4 Albumin/Globulin Ratio 1.6 Assessment & Plan - Assessment and Plan (Free Text) Assessment: 57 F cigarette smoker with HTN, HLD, past CVA and a 38 year old son with recent LA who is being evaluated for shortness of breath for 2 weeks New Onset CHF Echo 04/10 shows LVEF 15%, severe systolic dysfunction, global hypokinesis in LV, Moderate MR EKG on admission shows Sinus tachycardia with ST and T wave changes Complete cardiac cath planned for tomorrow afternoon, NPO after breakfast Patient seen, case reviewed. Further recs per Dr. Lucio. John Hoffman, PGY-1 <Rian Lucio - Last Filed: 04/11/18 18:43> Meds - Medications Medications: Current Medications Albuterol (Ventolin Hfa 90 Mcg/Actuation (8 G)) 2 puff INH RQ12 PRN PRN Reason: Shortness of Breath Stop: 04/13/18 22:14 Albuterol Sulfate (Albuterol 0.083% Inhal Emma (2.5 Mg/3 Ml) Ud) 2.5 mg INH RQ4 PRN PRN Reason: Shortness of Breath Last Admin: 04/11/18 08:00 Dose: 2.5 mg Amitriptyline HCl (Elavil) 25 mg PO DAILY [facility] Last Admin: 04/11/18 10:55 Dose: 25 mg Amlodipine Besylate (Norvasc) 10 mg PO DAILY [facility] Last Admin: 04/11/18 10:54 Dose: 10 mg Aspirin (Aspirin Chewable) 81 mg PO DAILY [facility] Last Admin: 04/11/18 10:54 Dose: 81 mg Carvedilol (Coreg) 3.125 mg PO BID [facility] Last Admin: 04/11/18 17:32 Dose: 3.125 mg Cyclobenzaprine HCl (Flexeril) 5 mg PO BID [facility] Last Admin: 04/11/18 17:33 Dose: 5 mg Dextrose (Dextrose 50% Inj) 0 ml IV STAT PRN; Protocol PRN Reason: Hypoglycemia Protocol Dextrose (Glutose 15) 0 gm PO ONCE PRN; Protocol PRN Reason: Hypoglycemia Protocol Enoxaparin Sodium (Lovenox) 40 mg SC DAILY [facility] Last Admin: 04/11/18 10:54 Dose: 40 mg Ferrous Sulfate (Feosol) 325 mg PO DAILY [facility] Last Admin: 04/11/18 10:54 Dose: 325 mg Glucagon (Glucagen Diagnostic Kit) 0 mg IM STAT PRN; Protocol PRN Reason: Hypoglycemia Protocol Dextrose (Dextrose 5% In Water 1000 Ml) 1,000 mls @ 0 mls/hr IV .Q0M PRN; Protocol PRN Reason: Hypoglycemia Protocol Insulin Aspart (Novolog) 0 unit SC [facility]; Protocol Last Admin: 04/11/18 17:34 Dose: 2 unit Lisinopril (Zestril) 5 mg PO DAILY [facility] Last Admin: 04/11/18 11:30 Dose: 5 mg Methylprednisolone (Solu-Medrol) 40 mg IV Q6 [facility] Last Admin: 04/11/18 17:35 Dose: 40 mg Nicotine (Nicoderm Cq) 1 patch TD DAILY [facility] Last Admin: 04/11/18 10:54 Dose: 1 patch Rosuvastatin Calcium (Crestor) 10 mg PO HS [facility] Last Admin: 04/10/18 21:33 Dose: 10 mg Zolpidem Tartrate (Ambien) 5 mg PO HS PRN PRN Reason: Insomnia Last Admin: 04/10/18 21:33 Dose: 5 mg Results - Vital Signs Recent Vital Signs: Last Vital Signs Temp 97.6 F 04/11/18 15:15 Pulse 113 H 04/11/18 15:15 Resp 20 04/11/18 15:15 BP 116/72 04/11/18 15:15 Pulse Ox 96 04/11/18 15:15 - Labs Result Diagrams: 04/11/18 11:00 04/11/18 11:00 Labs: Laboratory Results - last 24 hr 04/10/18 04/10/18 04/11/18 11:45 21:06 06:31 WBC RBC Hgb Hct MCV MCH MCHC RDW Plt Count MPV Neut % (Auto) Lymph % (Auto) [place] % (Auto) Eos % (Auto) Baso % (Auto) Neut # (Auto) Lymph # (Auto) [place] # (Auto) Eos # (Auto) Baso # (Auto) Neutrophils % (Manual) Lymphocytes % (Manual) Monocytes % (Manual) Platelet Estimate Sodium Potassium Chloride Carbon Dioxide Anion Gap BUN Creatinine Est GFR ( Amer) Est GFR (Non-Af Amer) POC Glucose (mg/dL) 309 H 294 H 246 H Random Glucose Calcium Total Bilirubin AST ALT Alkaline Phosphatase Troponin I Total Protein Albumin Globulin Albumin/Globulin Ratio 04/11/18 04/11/18 04/11/18 11:00 11:00 11:50 WBC 14.3 H RBC 4.71 Hgb 12.3 Hct 38.3 MCV 81.3 MCH 26.1 L MCHC 32.1 L RDW 16.2 H Plt Count 429 H MPV 8.4 Neut % (Auto) 92.5 H Lymph % (Auto) 4.7 L [place] % (Auto) 2.7 Eos % (Auto) 0.0 Baso % (Auto) 0.1 Neut # (Auto) 13.2 H Lymph # (Auto) 0.7 L [place] # (Auto) 0.4 Eos # (Auto) 0.0 Baso # (Auto) 0.0 Neutrophils % (Manual) 95 H Lymphocytes % (Manual) 4 L Monocytes % (Manual) 1 Platelet Estimate Normal Sodium 140 Potassium 4.3 Chloride 104 Carbon Dioxide 22 Anion Gap 19 BUN 24 H Creatinine 0.7 Est GFR ( Amer) > 60 Est GFR (Non-Af Amer) > 60 POC Glucose (mg/dL) 279 H Random Glucose 314 H Calcium 9.3 Total Bilirubin 0.4 AST 24 ALT 34 Alkaline Phosphatase 84 Troponin I 0.0150 Total Protein 6.4 Albumin 4.0 Globulin 2.4 Albumin/Globulin Ratio 1.6 04/11/18 16:02 WBC RBC Hgb Hct MCV MCH MCHC RDW Plt Count MPV Neut % (Auto) Lymph % (Auto) [place] % (Auto) Eos % (Auto) Baso % (Auto) Neut # (Auto) Lymph # (Auto) [place] # (Auto) Eos # (Auto) Baso # (Auto) Neutrophils % (Manual) Lymphocytes % (Manual) Monocytes % (Manual) Platelet Estimate Sodium Potassium Chloride Carbon Dioxide Anion Gap BUN Creatinine Est GFR ( Amer) Est GFR (Non-Af Amer) POC Glucose (mg/dL) 201 H Random Glucose Calcium Total Bilirubin AST ALT Alkaline Phosphatase Troponin I Total Protein Albumin Globulin Albumin/Globulin Ratio Attending/Attestation - Attestation I have personally seen and examined this patient.: Yes I have fully participated in the care of the patient.: Yes I have reviewed all pertinent clinical information: Yes Notes (Text): 04/11/18 18:43 new onset CHF CRF - htn, dm , +ve smoking GDMT for CHF and CAD cardiac cath
--- NOTE | 2018-04-11 12:59 | CP.PCM.PN ---
Subjective - Date & Time of Evaluation Date of Evaluation: 04/11/18 Time of Evaluation: 12:55 - Subjective Subjective: PROGRESS NOTE. Attending: Dr. Gutierrez. Pt seen and examined at bedside. No acute distress. No events overnight. No fevers, chills, chest pain, vomiting, diarrhea. Severe heart disease planned on echo. Cardiac cath planned for tomorrow. Objective - Vital Signs/Intake and Output Vital Signs (last 24 hours): Temp Pulse Resp BP Pulse Ox 98.0 F 78 20 127/82 97 04/11/18 08:54 04/11/18 08:54 04/11/18 08:54 04/11/18 08:54 04/11/18 08:54 - Medications Medications: Current Medications Albuterol (Ventolin Hfa 90 Mcg/Actuation (8 G)) 2 puff INH RQ12 PRN PRN Reason: Shortness of Breath Stop: 04/13/18 22:14 Albuterol Sulfate (Albuterol 0.083% Inhal Emma (2.5 Mg/3 Ml) Ud) 2.5 mg INH RQ4 PRN PRN Reason: Shortness of Breath Last Admin: 04/11/18 08:00 Dose: 2.5 mg Amitriptyline HCl (Elavil) 25 mg PO DAILY [facility] Last Admin: 04/11/18 10:55 Dose: 25 mg Amlodipine Besylate (Norvasc) 10 mg PO DAILY [facility] Last Admin: 04/11/18 10:54 Dose: 10 mg Aspirin (Aspirin Chewable) 81 mg PO DAILY [facility] Last Admin: 04/11/18 10:54 Dose: 81 mg Carvedilol (Coreg) 3.125 mg PO BID [facility] Cyclobenzaprine HCl (Flexeril) 5 mg PO BID [facility] Last Admin: 04/11/18 10:55 Dose: 5 mg Enoxaparin Sodium (Lovenox) 40 mg SC DAILY [facility] Last Admin: 04/11/18 10:54 Dose: 40 mg Ferrous Sulfate (Feosol) 325 mg PO DAILY [facility] Last Admin: 04/11/18 10:54 Dose: 325 mg Insulin Aspart (Novolog) 0 unit SC [facility]; Protocol Last Admin: 04/11/18 12:41 Dose: 3 unit Lisinopril (Zestril) 5 mg PO DAILY [facility] Last Admin: 04/11/18 11:30 Dose: 5 mg Metformin HCl (Glucophage) 500 mg PO BIDCC [facility] Last Admin: 04/11/18 08:22 Dose: 500 mg Methylprednisolone (Solu-Medrol) 40 mg IV Q6 [facility] Last Admin: 04/11/18 12:40 Dose: 40 mg Nicotine (Nicoderm Cq) 1 patch TD DAILY [facility] Last Admin: 04/11/18 10:54 Dose: 1 patch Rosuvastatin Calcium (Crestor) 10 mg PO HS [facility] Last Admin: 04/10/18 21:33 Dose: 10 mg Zolpidem Tartrate (Ambien) 5 mg PO HS PRN PRN Reason: Insomnia Last Admin: 04/10/18 21:33 Dose: 5 mg - Labs Labs: 04/11/18 11:00 04/11/18 11:00 - Constitutional Appears: Non-toxic, No Acute Distress - Head Exam Head Exam: ATRAUMATIC, NORMAL INSPECTION, NORMOCEPHALIC - Eye Exam Eye Exam: EOMI - ENT Exam ENT Exam: Mucous Membranes Moist - Neck Exam Neck Exam: Full ROM, Normal Inspection - Respiratory Exam Respiratory Exam: absent: Respiratory Distress - Cardiovascular Exam Cardiovascular Exam: +S1, +S2 - GI/Abdominal Exam GI & Abdominal Exam: Soft, Normal Bowel Sounds. absent: Tenderness - Extremities Exam Extremities Exam: Full ROM, Normal Inspection - Neurological Exam Neurological Exam: Alert, Awake, Oriented x3 - Psychiatric Exam Psychiatric exam: Normal Affect, Normal Mood - Skin Skin Exam: Dry, Intact, Normal Color, Warm Assessment and Plan - Assessment and Plan (Free Text) Assessment: This is a 57 yo female with 1. Shortness of breath -severe LV dx -EF of 15 percent -cardiac cath planned for tomorrow with Dr. Lucio. -chest CT shows cardiomegaly. mild emphysema. lung nodule. hepatic cyst. -albuterol 2 puffs RQ12 hrs -albuterol RQ4 -solumedrol 40 IV q 6 hrs 2. Elevated d dimer -negative CT angio for PE -trops negative x 2 3. Tachycardia -ST/T wave changes on ekg -albuterol may be playing a role -sinus tachycardia on ekg -cardio consult. recs appreciated. echo shows severe systolic dx. -global hypokinesis -moderate pulm htn -adding coreg bid 4. Pulmonary htn -treat underlying heart failure -consider pulm consult. 5. hx of HLD -crestor 10 mg po hs 6. IGT -ISS -metformin 500 bid- hold prior to cath 7. hx of htn -norvasc 10 -adding lisinopril 5 mg -asa 81 mg po daily 8. hx of iron def anemia -feosol 325 daily 9. hx of tobacco abuse. -nicotine patch 10. hx of insomnia -ambien 5 mg daily 11. GI/DVT ppx -lovenox 40 mg sc daily
[2018-04-11] MEDS ORDERED: Dextrose 50% SYRINGE Inj (50 ml) IV PRN (15:29)
[2018-04-11] MEDS ORDERED: Glucagon Recombinant 1 mg Inj IM PRN (15:29)
[2018-04-11 20:04] LABS: PROTHROMBIN TIME 10.6 SECONDS (9.7-12.2)
[2018-04-12 07:48] LABS: BASO % 0.2 % (0.0-2.0); LYMPH # 0.5 K/uL (1.0-4.3); LYMPH % 3.9 % (20.0-40.0); MEAN CELL VOLUME 80.8 fL (81.0-99.0); MEAN CORPUSCULAR HEMOGLOBIN 26.4 pg (27.0-31.0); MEAN CORPUSCULAR HGB CONC 32.6 g/dL (33.0-37.0); MEAN PLATELET VOLUME 7.7 fL (7.2-11.7); MONO # 0.4 K/uL (0.0-0.8); MONO % 2.7 % (0.0-10.0); NEUT # 12.3 K/uL (1.8-7.0); NEUT % 93.2 % (50.0-75.0); PLATELET COUNT 492 K/uL (130-400); RBC 4.94 Mil/uL (3.80-5.20); WHITE BLOOD COUNT 13.2 K/uL (4.8-10.8)
--- NOTE | 2018-04-12 08:03 | CP.PCM.PN ---
Subjective - Date & Time of Evaluation Date of Evaluation: 04/12/18 Time of Evaluation: 07:40 - Subjective Subjective: PGY-2- medicine progress note for Dr. Gutierrez Patient was seen and examined at bedside in no acute distress. Patient reports having a nonproductive cough, but otherwise feels well. She denies chest pain, palpitations, dyspnea, nausea, vomiting, fevers, headaches dizziness, abdominal pain, leg pain, dysuria. Patient tolerated breakfast this morning and is NPO after breakfast for cardiac cath this afternoon. Objective - Vital Signs/Intake and Output Vital Signs (last 24 hours): Temp Pulse Resp BP Pulse Ox 98 F 109 H 20 140/79 97 04/11/18 23:00 04/12/18 04:43 04/11/18 23:00 04/11/18 23:00 04/11/18 23:00 - Medications Medications: Current Medications Albuterol (Ventolin Hfa 90 Mcg/Actuation (8 G)) 2 puff INH RQ12 PRN PRN Reason: Shortness of Breath Stop: 04/13/18 22:14 Albuterol Sulfate (Albuterol 0.083% Inhal Emma (2.5 Mg/3 Ml) Ud) 2.5 mg INH RQ4 PRN PRN Reason: Shortness of Breath Last Admin: 04/11/18 19:16 Dose: 2.5 mg Amitriptyline HCl (Elavil) 25 mg PO DAILY [facility] Last Admin: 04/11/18 10:55 Dose: 25 mg Amlodipine Besylate (Norvasc) 10 mg PO DAILY [facility] Last Admin: 04/11/18 10:54 Dose: 10 mg Aspirin (Aspirin Chewable) 81 mg PO DAILY [facility] Last Admin: 04/11/18 10:54 Dose: 81 mg Carvedilol (Coreg) 3.125 mg PO BID [facility] Last Admin: 04/11/18 17:32 Dose: 3.125 mg Cyclobenzaprine HCl (Flexeril) 5 mg PO BID [facility] Last Admin: 04/11/18 17:33 Dose: 5 mg Dextrose (Dextrose 50% Inj) 0 ml IV STAT PRN; Protocol PRN Reason: Hypoglycemia Protocol Dextrose (Glutose 15) 0 gm PO ONCE PRN; Protocol PRN Reason: Hypoglycemia Protocol Enoxaparin Sodium (Lovenox) 40 mg SC DAILY [facility] Last Admin: 04/11/18 10:54 Dose: 40 mg Ferrous Sulfate (Feosol) 325 mg PO DAILY [facility] Last Admin: 04/11/18 10:54 Dose: 325 mg Glucagon (Glucagen Diagnostic Kit) 0 mg IM STAT PRN; Protocol PRN Reason: Hypoglycemia Protocol Dextrose (Dextrose 5% In Water 1000 Ml) 1,000 mls @ 0 mls/hr IV .Q0M PRN; Protocol PRN Reason: Hypoglycemia Protocol Insulin Aspart (Novolog) 0 unit SC ACHS [facility]; Protocol Last Admin: 04/11/18 21:39 Dose: Not Given Lisinopril (Zestril) 5 mg PO DAILY [facility] Last Admin: 04/11/18 11:30 Dose: 5 mg Methylprednisolone (Solu-Medrol) 40 mg IV Q6 [facility] Last Admin: 04/12/18 05:14 Dose: 40 mg Nicotine (Nicoderm Cq) 1 patch TD DAILY [facility] Last Admin: 04/11/18 10:54 Dose: 1 patch Rosuvastatin Calcium (Crestor) 10 mg PO HS [facility] Last Admin: 04/11/18 22:36 Dose: 10 mg Zolpidem Tartrate (Ambien) 5 mg PO HS PRN PRN Reason: Insomnia Last Admin: 04/11/18 22:36 Dose: 5 mg - Labs Labs: 04/11/18 11:00 04/11/18 11:00 PT 10.6 SECONDS (9.7-12.2) 04/11/18 19:30 INR 1.0 04/11/18 19:30 APTT 32 SECONDS (21-34) 04/11/18 19:30 - Constitutional Appears: No Acute Distress - Head Exam Head Exam: ATRAUMATIC, NORMAL INSPECTION - Eye Exam Eye Exam: EOMI - ENT Exam ENT Exam: Mucous Membranes Moist - Respiratory Exam Respiratory Exam: Rales, NORMAL BREATHING PATTERN. absent: Rhonchi, Wheezes, Respiratory Distress - Cardiovascular Exam Cardiovascular Exam: REGULAR RHYTHM, +S1, +S2 - GI/Abdominal Exam GI & Abdominal Exam: Soft, Normal Bowel Sounds. absent: Distended, Firm, Tenderness - Extremities Exam Extremities Exam: Pedal Edema (LLE; wears foot brace due to foot drop (2/2 to CVA)). absent: Calf Tenderness, Tenderness - Neurological Exam Neurological Exam: Alert, Awake - Psychiatric Exam Psychiatric exam: Normal Affect, Normal Mood - Skin Skin Exam: Intact, Normal Color, Warm Assessment and Plan - Assessment and Plan (Free Text) Plan: New Onset CHF - Die Hardener consulted, Dr. Lucio; help appreciated - Echo (04/10): LVEF 15%, severe systolic dysfunction, global hypokinesis in LV, Moderate MR - Chest CT shows cardiomegaly. mild emphysema. lung nodule. hepatic cyst - CXR (Admission): Moderate interstitial prominence may reflect infection or edema. Cardiomegaly. - Monitor I/O - Daily weight *Cardiac cath scheduled for today, 04/12/18, with Dr. Lucio. NPO after breakfast Medication: - Ventolin 2 puffs RQ12 hrs - Albuterol RQ4 prn - Solumedrol 40 IV q 6 hrs - Coreg 3.125mg PO BID - Lisinpril 5mg PO daily Elevated D Dimer - Negative CT angio for PE - Trops negative x 2 Tachycardia - EKG: ST/T wave changes, sinus tachycardia - Albuterol may be playing a role - Cardio consulted- Dr. Lucio; recs appreciated. - Cardiac cath scheduled for 04/12/18 - Coreg 3.125mg PO BID Pulmonary HTN - Treat underlying heart failure - Consider pulm consult. IGT - Accuchecks - Hypoglycemic protocol - ISS - Metformin 500 bid- hold prior to cath HTN - Norvasc 10mg PO daily - Lisinopril 5 mg PO daily Hx of HLD - Crestor 10 mg PO HS - ASA 81 mg po daily Hx of iron def anemia - Feosol 325 daily Hx of tobacco abuse - Nicotine patch Hx of insomnia - Ambien 5 mg daily Prophylaxis - DVT: Lovenox 40 mg SC daily - GI: not indicated - Heart healthy diet - PT/OT Case discussed with Dr. Gutierrez. All management per Dr. Gutierrez.
[2018-04-12 08:30] LABS: LYMPHOCYTE 7 % (20-40); MONOCYTE 2 % (0-10); NEUTROPHIL 91 % (50-75); TOTAL CELLS COUNTED 100
[2018-04-12 08:31] LABS: PLATELET ESTIMATE INCREASED (NORMAL)
[2018-04-12] MEDS: (Novolog) Insulin Aspart, Recombinant 100 u/ml 10 ml vial SC SCH ×4 (08:31→22:15)
[2018-04-12 08:42] LABS: ALB/GLOB RATIO 1.5 (1.0-2.1); ALBUMIN 4.1 g/dL (3.5-5.0); ALT/SGPT 32 U/L (9-52); AST/SGOT 12 U/L (14-36); BLOOD UREA NITROGEN 26 mg/dL (7-17); CALCIUM 9.5 mg/dl (8.6-10.4); GFR NON-AFRICAN AMERICAN > 60
--- NOTE | 2018-04-12 08:44 | HP ---
HISTORY OF PRESENT ILLNESS: Ms. Luu was admitted to the hospital with chief complaint of shortness of breath, weakness, tiredness for a few days. The patient came to the ER, advised admission. The patient has history of CVA and hypertension. The patient is a smoker for 42 years. PHYSICAL EXAMINATION: GENERAL: The patient is awake, alert and oriented. VITAL SIGNS: Temperature 98, pulse 90, blood pressure 130/90. HEENT: Within normal limits. NECK: Supple. CHEST: Symmetrical. HEART: Regular. ABDOMEN: Soft. EXTREMITIES: No edema. IMPRESSION AND PLAN: The patient suffers from shortness of breath, mild congestive heart failure, chronic obstructive pulmonary disease. The patient advised bed rest, supportive care. . Lennox Gutierrez MD
[2018-04-12] MEDS: Enoxaparin 40 mg Syringe SC SCH (10:09)
[2018-04-12] MEDS ORDERED: Verapamil 2 ML ONE (15:52)
[2018-04-12] MEDS ORDERED: Midazolam 2 MG/2 ML VIAL ONE (16:08)
[2018-04-12] MEDS ORDERED: Iohexol 350mg/ml 100 ML ONE (16:43)
[2018-04-12 16:55] LABS: ARTERIAL BLOOD GAS HCO3 25.9 mmol/L (21-28); ARTERIAL BLOOD GAS HEMOGLOBIN 12.4 g/dL (11.7-17.4); ARTERIAL BLOOD GAS O2 SAT 97.1 % (95-98); ARTERIAL BLOOD GAS PCO2 40 mm/Hg (35-45); ARTERIAL BLOOD GAS PH 7.42 (7.35-7.45); ARTERIAL BLOOD GAS PO2 72 mm/Hg (80-100); ARTERIAL BLOOD GAS TCO2 27.1 mmol/L (22-28)
[2018-04-12 16:58] LABS: VENOUS BLOOD GAS BASE EXCESS 0.8 mmol/L (0.0-2.0); VENOUS BLOOD GAS PCO2 46 mmHg (40-60); VENOUS BLOOD GAS PO2 34 mm/Hg (30-55); VENOUS BLOOD PH 7.37 (7.32-7.43)
--- NOTE | 2018-04-12 20:07 | CP.PCM.PN ---
Subjective - Date & Time of Evaluation Date of Evaluation: 04/12/18 Time of Evaluation: 20:04 - Subjective Subjective: s/p CHCx showing nocad ( mod RCA ) non-ischemic CMP ( EF 10-15%) Objective - Vital Signs/Intake and Output Vital Signs (last 24 hours): Temp Pulse Resp BP Pulse Ox 97.7 F 104 H 20 123/82 94 L 04/12/18 08:56 04/12/18 11:40 04/12/18 08:56 04/12/18 08:56 04/12/18 08:56 - Medications Medications: Current Medications Albuterol (Ventolin Hfa 90 Mcg/Actuation (8 G)) 2 puff INH RQ12 PRN PRN Reason: Shortness of Breath Stop: 04/13/18 22:14 Albuterol Sulfate (Albuterol 0.083% Inhal Emma (2.5 Mg/3 Ml) Ud) 2.5 mg INH RQ4 PRN PRN Reason: Shortness of Breath Last Admin: 04/11/18 19:16 Dose: 2.5 mg Amitriptyline HCl (Elavil) 25 mg PO DAILY [facility] Last Admin: 04/12/18 10:30 Dose: 25 mg Amlodipine Besylate (Norvasc) 10 mg PO DAILY [facility] Last Admin: 04/12/18 10:10 Dose: Not Given Aspirin (Aspirin Chewable) 81 mg PO DAILY [facility] Last Admin: 04/12/18 10:08 Dose: Not Given Carvedilol (Coreg) 3.125 mg PO BID [facility] Last Admin: 04/12/18 10:31 Dose: 3.125 mg Cyclobenzaprine HCl (Flexeril) 5 mg PO BID [facility] Last Admin: 04/12/18 10:30 Dose: 5 mg Dextrose (Dextrose 50% Inj) 0 ml IV STAT PRN; Protocol PRN Reason: Hypoglycemia Protocol Dextrose (Glutose 15) 0 gm PO ONCE PRN; Protocol PRN Reason: Hypoglycemia Protocol Enoxaparin Sodium (Lovenox) 40 mg SC DAILY [facility] Last Admin: 04/12/18 10:09 Dose: Not Given Ferrous Sulfate (Feosol) 325 mg PO DAILY [facility] Last Admin: 04/12/18 10:31 Dose: 325 mg Glucagon (Glucagen Diagnostic Kit) 0 mg IM STAT PRN; Protocol PRN Reason: Hypoglycemia Protocol Dextrose (Dextrose 5% In Water 1000 Ml) 1,000 mls @ 0 mls/hr IV .Q0M PRN; Protocol PRN Reason: Hypoglycemia Protocol Insulin Aspart (Novolog) 0 unit SC ACHS [facility]; Protocol Last Admin: 04/12/18 12:49 Dose: Not Given Lisinopril (Zestril) 5 mg PO DAILY [facility] Last Admin: 04/12/18 10:10 Dose: Not Given Methylprednisolone (Solu-Medrol) 40 mg IV Q6 [facility] Last Admin: 04/12/18 12:46 Dose: 40 mg Nicotine (Nicoderm Cq) 1 patch TD DAILY [facility] Last Admin: 04/12/18 10:30 Dose: 1 patch Rosuvastatin Calcium (Crestor) 10 mg PO HS [facility] Last Admin: 04/11/18 22:36 Dose: 10 mg Zolpidem Tartrate (Ambien) 5 mg PO HS PRN PRN Reason: Insomnia Last Admin: 04/11/18 22:36 Dose: 5 mg - Labs Labs: 04/12/18 07:40 04/12/18 07:40 PT 10.6 SECONDS (9.7-12.2) 04/11/18 19:30 INR 1.0 04/11/18 19:30 APTT 32 SECONDS (21-34) 04/11/18 19:30 - Constitutional Appears: Well - Head Exam Head Exam: ATRAUMATIC, NORMAL INSPECTION, NORMOCEPHALIC - Eye Exam Eye Exam: EOMI, Normal appearance, PERRL Pupil Exam: NORMAL ACCOMODATION, PERRL - ENT Exam ENT Exam: Mucous Membranes Moist, Normal Exam - Neck Exam Neck Exam: Full ROM, Normal Inspection. absent: Lymphadenopathy - Respiratory Exam Respiratory Exam: Clear to Ausculation Bilateral, NORMAL BREATHING PATTERN - Cardiovascular Exam Cardiovascular Exam: REGULAR RHYTHM, +S1, +S2. absent: Murmur - GI/Abdominal Exam GI & Abdominal Exam: Soft, Normal Bowel Sounds. absent: Tenderness - Extremities Exam Extremities Exam: Full ROM, Normal Capillary Refill, Normal Inspection. absent: Joint Swelling, Pedal Edema - Back Exam Back Exam: NORMAL INSPECTION - Neurological Exam Neurological Exam: Alert, Awake, CN II-XII Intact, Normal Gait, Oriented x3 - Psychiatric Exam Psychiatric exam: Normal Affect, Normal Mood - Skin Skin Exam: Dry, Intact, Normal Color, Warm Assessment and Plan (1) CHF (congestive heart failure) Assessment & Plan: non-ischemic EF 10-15% lifevest eval for ICD in 3 months on maximal medical therapy GDMT for CHF ( BB, ARB , aldactone ) no ACEI due to recent studies showing increased risk of lung Ca Status: Acute (2) SOB (shortness of breath) Assessment & Plan: lasix 40mg IV daily Status: Acute
--- NOTE | 2018-04-13 03:59 | CARDCATH ---
PROCEDURE DATE: 04/09/2018 INDICATIONS: Ms. Sissy Luu is a 57-year-old female, admitted to [facility] with diagnosis of new-onset CHF, multiple cardiovascular risk factors, brought to the laboratory technology teacher for further evaluation and treatment of heart failure and indications of new onset CHF, ischemic cardiomyopathy. PROCEDURE PERFORMED: Left heart catheterization with selective left and right coronary angiogram, left ventriculogram, right heart catheterization with hemodynamics and saturation. FINDINGS: RA mean pressure was 18 mmHg, RV 50/16 with EDP of 22, PA pressure is 53/37, mean of 45. Primary capillary wedge pressures were 39. The EDP was 34. Using the Haroon equation, cardiac outflow was calculated to be 3.34, cardiac index was 1.94. CORONARY ANATOMY: Left main is a large-sized vessel that bifurcates into LAD and circ. LAD is a large size vessel and is free of any obstructive disease, gives off two small diagonal branches. Left circumflex runs in the AV groove, gives off median size obtuse marginal branch, free of any obstructive disease. Proximal RCA has spasmodic lesion noted, 55% moderate stenosis of the proximal RCA, right dominant circulation. IMPRESSION: Moderate one-vessel vasospastic disease. Nonischemic cardiomyopathy. EF 10% to 15%. Elevated filling pressures. RECOMMENDATION: Guideline-directed therapy for CAD. The patient to follow with Dr. Lucio in 1 to 2 weeks' time. Titration of RAAS modulators, once the patient is out of the hospital home. Rian Lucio MD
[2018-04-13] MEDS: (Novolog) Insulin Aspart, Recombinant 100 u/ml 10 ml vial SC SCH ×4 (09:55→23:50)
[2018-04-13] MEDS: Enoxaparin 40 mg Syringe SC SCH (09:55)
[2018-04-13 11:09] LABS: BASO % 0.2 % (0.0-2.0); LYMPH # 0.4 K/uL (1.0-4.3); LYMPH % 4.9 % (20.0-40.0); MEAN CELL VOLUME 80.2 fL (81.0-99.0); MEAN CORPUSCULAR HEMOGLOBIN 26.6 pg (27.0-31.0); MEAN CORPUSCULAR HGB CONC 33.1 g/dL (33.0-37.0); MEAN PLATELET VOLUME 8.2 fL (7.2-11.7); MONO # 0.3 K/uL (0.0-0.8); NEUT # 7.9 K/uL (1.8-7.0); NEUT % 90.9 % (50.0-75.0); NRBC % 0.1 % (0.0-2.0); PLATELET COUNT 470 K/uL (130-400); RED CELL DISTRIBUTION WIDTH 15.9 % (11.5-14.5); WHITE BLOOD COUNT 8.7 K/uL (4.8-10.8)
[2018-04-13 11:31] LABS: ALB/GLOB RATIO 1.5 (1.0-2.1); ALBUMIN 3.7 g/dL (3.5-5.0); ALT/SGPT 27 U/L (9-52); AST/SGOT 10 U/L (14-36); BLOOD UREA NITROGEN 31 mg/dL (7-17); CALCIUM 9.1 mg/dl (8.6-10.4); GFR NON-AFRICAN AMERICAN > 60
[2018-04-13] MEDS ORDERED: (Novolog) Insulin Aspart, Recombinant 100 u/ml 10 ml vial SC ONE (11:42)
[2018-04-13 12:05] LABS: ANISOCYTOSIS SLIGHT; LYMPHOCYTE 4 % (20-40); MONOCYTE 3 % (0-10); NEUTROPHIL 93 % (50-75); PLATELET ESTIMATE NORMAL (NORMAL); TOTAL CELLS COUNTED 100
[2018-04-13 12:06] LABS: OVALOCYTES SLIGHT; POIKILOCYTOSIS SLIGHT; TEARDROP CELLS SLIGHT
--- NOTE | 2018-04-13 20:25 | CP.PCM.PN ---
Subjective - Date & Time of Evaluation Date of Evaluation: 04/13/18 Time of Evaluation: 20:14 - Subjective Subjective: Medicine progress note for Dr. Yi (covering Dr. Gutierrez) Patient was seen and examined at bedside in no acute distress. Patient had no complaints today and reports feeling well. Patient is tolerating diet and having normal BMs. Patient denies chest pain, palpitations, dyspnea, nausea, vomiting, fevers, headaches, abdominal pain. Objective - Vital Signs/Intake and Output Vital Signs (last 24 hours): Temp Pulse Resp BP Pulse Ox 98.1 F 106 H 20 134/80 95 04/13/18 14:30 04/13/18 14:30 04/13/18 14:30 04/13/18 18:40 04/13/18 14:30 Intake and Output: 04/13/18 04/14/18 18:59 06:59 Intake Total 400 Balance 400 - Medications Medications: Current Medications Albuterol (Ventolin Hfa 90 Mcg/Actuation (8 G)) 2 puff INH RQ12 PRN PRN Reason: Shortness of Breath Stop: 04/13/18 22:14 Albuterol Sulfate (Albuterol 0.083% Inhal Emma (2.5 Mg/3 Ml) Ud) 2.5 mg INH RQ4 PRN PRN Reason: Shortness of Breath Last Admin: 04/11/18 19:16 Dose: 2.5 mg Amitriptyline HCl (Elavil) 25 mg PO DAILY [facility] Last Admin: 04/13/18 09:56 Dose: 25 mg Aspirin (Aspirin Chewable) 81 mg PO DAILY [facility] Last Admin: 04/13/18 09:56 Dose: 81 mg Carvedilol (Coreg) 25 mg PO BID [facility] Last Admin: 04/13/18 18:40 Dose: 25 mg Cyclobenzaprine HCl (Flexeril) 5 mg PO BID [facility] Last Admin: 04/13/18 18:33 Dose: 5 mg Dextrose (Dextrose 50% Inj) 0 ml IV STAT PRN; Protocol PRN Reason: Hypoglycemia Protocol Dextrose (Glutose 15) 0 gm PO ONCE PRN; Protocol PRN Reason: Hypoglycemia Protocol Enoxaparin Sodium (Lovenox) 40 mg SC DAILY [facility] Last Admin: 04/13/18 09:55 Dose: 40 mg Ferrous Sulfate (Feosol) 325 mg PO DAILY [facility] Last Admin: 04/13/18 11:59 Dose: 325 mg Furosemide (Lasix) 40 mg PO BID [facility] Last Admin: 04/13/18 18:34 Dose: 40 mg Glucagon (Glucagen Diagnostic Kit) 0 mg IM STAT PRN; Protocol PRN Reason: Hypoglycemia Protocol Dextrose (Dextrose 5% In Water 1000 Ml) 1,000 mls @ 0 mls/hr IV .Q0M PRN; Protocol PRN Reason: Hypoglycemia Protocol Insulin Aspart (Novolog) 0 unit SC ACHS [facility]; Protocol Last Admin: 04/13/18 18:39 Dose: 2 unit Losartan Potassium (Cozaar) 100 mg PO DAILY [facility] Last Admin: 04/13/18 11:59 Dose: Not Given Methylprednisolone (Solu-Medrol) 40 mg IV Q6 [facility] Last Admin: 04/13/18 18:33 Dose: 40 mg Nicotine (Nicoderm Cq) 1 patch TD DAILY [facility] Last Admin: 04/13/18 09:56 Dose: 1 patch Rosuvastatin Calcium (Crestor) 10 mg PO HS [facility] Last Admin: 04/12/18 22:20 Dose: 10 mg Spironolactone (Aldactone) 25 mg PO DAILY [facility] Last Admin: 04/13/18 11:59 Dose: Not Given Zolpidem Tartrate (Ambien) 5 mg PO HS PRN PRN Reason: Insomnia Last Admin: 04/11/18 22:36 Dose: 5 mg - Labs Labs: 04/13/18 10:57 04/13/18 10:57 PT 10.6 SECONDS (9.7-12.2) 04/11/18 19:30 INR 1.0 04/11/18 19:30 APTT 32 SECONDS (21-34) 04/11/18 19:30 - Additional Findings Additional findings: - Constitutional Appears: No Acute Distress - Head Exam Head Exam: ATRAUMATIC, NORMAL INSPECTION - Eye Exam Eye Exam: EOMI - ENT Exam ENT Exam: Mucous Membranes Moist - Respiratory Exam Respiratory Exam: NORMAL BREATHING PATTERN. absent: Rhonchi, Wheezes, Respiratory Distress - Cardiovascular Exam Cardiovascular Exam: REGULAR RHYTHM, +S1, +S2 - GI/Abdominal Exam GI & Abdominal Exam: Soft, Normal Bowel Sounds. absent: Distended, Firm, Tenderness - Extremities Exam Extremities Exam: Pedal Edema (LLE; wears foot brace due to foot drop (2/2 to CVA)). absent: Calf Tenderness, Tenderness - Neurological Exam Neurological Exam: Alert, Awake - Psychiatric Exam Psychiatric exam: Normal Affect, Normal Mood - Skin Skin Exam: Intact, Normal Color, Warm Assessment and Plan - Assessment and Plan (Free Text) Plan: New Onset CHF - Promotions Executive Producer consulted, Dr. Lucio; help appreciated - Echo (04/10): LVEF 15%, severe systolic dysfunction, global hypokinesis in LV, Moderate MR - Chest CT shows cardiomegaly. mild emphysema. lung nodule. hepatic cyst - CXR (Admission): Moderate interstitial prominence may reflect infection or edema. Cardiomegaly. - Monitor I/O - Daily weight *S/P Cardiac cath with Dr. Lucio on 04/12/18: nonischemic; EF 10-15%; requires life vest. Eval for ICD in 3 months on maximum therapy. GDMT CHF. Medications: - Coreg 25mg PO BID - Losartan 100mg PO daily (discontinued Lisinpril 5mg PO daily due to recent study showing increased risk of lung cancer) - Aldactone 25mg PO daily - Lasix 40mg PO BID - Crestor 10mg PO HS Shortness of breath - Resolved; likely secondary to new onset CHF - Albuterol prn - Solumedrol 40mg IV Q8h (tapering down) - O2 via NC prn Elevated D Dimer - Negative CT angio for PE - Trops negative x 2 Tachycardia - EKG: ST/T wave changes, sinus tachycardia - Albuterol may be playing a role - Cardio consulted- Dr. Lucio; recs appreciated. - Cardiac cath scheduled for 04/12/18 - Coreg 25mg PO BID Pulmonary HTN - Treat underlying heart failure - Consider pulm consult. IGT - Accuchecks - Hypoglycemic protocol - ISS - Metformin 500 bid- held due to cardiac cath HTN - Discontinued Norvasc 10mg PO daily on 04/[address] Lucio - Losartan 100mg PO daily (discontinued Lisinpril 5mg PO daily due to recent study showing increased risk of lung cancer) Hx of HLD - Crestor 10 mg PO HS - ASA 81 mg po daily Hx of iron def anemia - Feosol 325 daily Hx of tobacco abuse - Nicotine patch Hx of insomnia - Ambien 5 mg daily Prophylaxis - DVT: Lovenox 40 mg SC daily - GI: not indicated - Heart healthy diet - PT/OT Dispo: Life Vest approved by insurance. Patient is pending life vest fitting.
[2018-04-14] MEDS ORDERED: MethylPREDNISolone 40 mg Vial IV SCH
[2018-04-14 04:36] VITALS: TEMP 98
[2018-04-14 07:48] LABS: BASO % 0.2 % (0.0-2.0); HEMOGLOBIN 13.6 g/dL (11.0-16.0); LYMPH # 0.7 K/uL (1.0-4.3); LYMPH % 6.3 % (20.0-40.0); MEAN CELL VOLUME 81.6 fL (81.0-99.0); MEAN CORPUSCULAR HEMOGLOBIN 26.8 pg (27.0-31.0); MEAN CORPUSCULAR HGB CONC 32.9 g/dL (33.0-37.0); MEAN PLATELET VOLUME 8.3 fL (7.2-11.7); MONO # 0.4 K/uL (0.0-0.8); MONO % 3.2 % (0.0-10.0); NEUT % 90.3 % (50.0-75.0); NRBC % 0.1 % (0.0-2.0); PLATELET COUNT 465 K/uL (130-400); RBC 5.05 Mil/uL (3.80-5.20); RED CELL DISTRIBUTION WIDTH 15.9 % (11.5-14.5)
[2018-04-14] MEDS: (Novolog) Insulin Aspart, Recombinant 100 u/ml 10 ml vial SC SCH ×3 (07:51→17:23)
[2018-04-14 08:04] LABS: ALB/GLOB RATIO 1.4 (1.0-2.1); ALBUMIN 3.7 g/dL (3.5-5.0); ALT/SGPT 24 U/L (9-52); AST/SGOT 10 U/L (14-36); BLOOD UREA NITROGEN 33 mg/dL (7-17); CALCIUM 8.7 mg/dl (8.6-10.4); GFR NON-AFRICAN AMERICAN > 60
[2018-04-14 09:22] LABS: BANDS 1 % (0-2); LYMPHOCYTE 7 % (20-40); MONOCYTE 3 % (0-10); NEUTROPHIL 89 % (50-75); TOTAL CELLS COUNTED 100
[2018-04-14 09:23] LABS: ANISOCYTOSIS SLIGHT; OVALOCYTES SLIGHT; PLATELET ESTIMATE SLIGHTLY INCREASED (NORMAL); POIKILOCYTOSIS SLIGHT
[2018-04-14 09:24] LABS: HYPOCHROMIC SLIGHT
--- NOTE | 2018-04-14 10:23 | CP.PCM.PN ---
Subjective - Date & Time of Evaluation Date of Evaluation: 04/14/18 Time of Evaluation: 10:23 Objective - Vital Signs/Intake and Output Vital Signs (last 24 hours): Temp Pulse Resp BP Pulse Ox 98 F 90 20 117/77 97 04/14/18 04:35 04/14/18 04:35 04/14/18 04:35 04/14/18 04:35 04/14/18 04:35 - Medications Medications: Current Medications Albuterol Sulfate (Albuterol 0.083% Inhal Emma (2.5 Mg/3 Ml) Ud) 2.5 mg INH RQ4 PRN PRN Reason: Shortness of Breath Last Admin: 04/11/18 19:16 Dose: 2.5 mg Amitriptyline HCl (Elavil) 25 mg PO DAILY [facility] Last Admin: 04/13/18 09:56 Dose: 25 mg Aspirin (Aspirin Chewable) 81 mg PO DAILY [facility] Last Admin: 04/13/18 09:56 Dose: 81 mg Carvedilol (Coreg) 25 mg PO BID [facility] Last Admin: 04/13/18 18:40 Dose: 25 mg Cyclobenzaprine HCl (Flexeril) 5 mg PO BID [facility] Last Admin: 04/13/18 18:33 Dose: 5 mg Dextrose (Dextrose 50% Inj) 0 ml IV STAT PRN; Protocol PRN Reason: Hypoglycemia Protocol Dextrose (Glutose 15) 0 gm PO ONCE PRN; Protocol PRN Reason: Hypoglycemia Protocol Enoxaparin Sodium (Lovenox) 40 mg SC DAILY [facility] Last Admin: 04/13/18 09:55 Dose: 40 mg Ferrous Sulfate (Feosol) 325 mg PO DAILY [facility] Last Admin: 04/13/18 11:59 Dose: 325 mg Furosemide (Lasix) 40 mg PO BID [facility] Last Admin: 04/13/18 18:34 Dose: 40 mg Glucagon (Glucagen Diagnostic Kit) 0 mg IM STAT PRN; Protocol PRN Reason: Hypoglycemia Protocol Dextrose (Dextrose 5% In Water 1000 Ml) 1,000 mls @ 0 mls/hr IV .Q0M PRN; Protocol PRN Reason: Hypoglycemia Protocol Insulin Aspart (Novolog) 0 unit SC ACHS [facility]; Protocol Last Admin: 04/14/18 07:51 Dose: 2 unit Losartan Potassium (Cozaar) 100 mg PO DAILY [facility] Last Admin: 04/13/18 11:59 Dose: Not Given Nicotine (Nicoderm Cq) 1 patch TD DAILY [facility] Last Admin: 04/13/18 09:56 Dose: 1 patch Rosuvastatin Calcium (Crestor) 10 mg PO HS [facility] Last Admin: 04/13/18 21:27 Dose: 10 mg Spironolactone (Aldactone) 25 mg PO DAILY [facility] Last Admin: 04/13/18 11:59 Dose: Not Given Zolpidem Tartrate (Ambien) 5 mg PO HS PRN PRN Reason: Insomnia Last Admin: 04/11/18 22:36 Dose: 5 mg - Labs Labs: 04/14/18 07:35 04/14/18 07:35 PT 10.6 SECONDS (9.7-12.2) 04/11/18 19:30 INR 1.0 04/11/18 19:30 APTT 32 SECONDS (21-34) 04/11/18 19:30
[2018-04-14] MEDS: Enoxaparin 40 mg Syringe SC SCH (10:27)
[2018-04-14 17:40] VITALS: PULSE 87
[2018-04-14 18:33] VITALS: BP 116/76
--- NOTE | 2018-04-14 23:06 | CP.PCM.DIS ---
Provider - Provider Date of Admission: 04/09/18 16:58 Attending physician: Lennox Gutierrez MD Primary care physician: Dr. Gutierrez Consults: Cardiology- Dr. Lucio Time Spent in preparation of Discharge (in minutes): 45 Hospital Course - Lab Results Lab Results: Most Recent Lab Values WBC 11.0 K/uL (4.8-10.8) H 04/14/18 07:35 RBC 5.05 Mil/uL (3.80-5.20) 04/14/18 07:35 Hgb 13.6 g/dL (11.0-16.0) 04/14/18 07:35 Hct 41.2 % (34.0-47.0) 04/14/18 07:35 MCV 81.6 fL (81.0-99.0) 04/14/18 07:35 MCH 26.8 pg (27.0-31.0) L 04/14/18 07:35 MCHC 32.9 g/dL (33.0-37.0) L 04/14/18 07:35 RDW 15.9 % (11.5-14.5) H 04/14/18 07:35 Plt Count 465 K/uL (130-400) H 04/14/18 07:35 MPV 8.3 fL (7.2-11.7) 04/14/18 07:35 Neut % (Auto) 90.3 % (50.0-75.0) H 04/14/18 07:35 Lymph % (Auto) 6.3 % (20.0-40.0) L 04/14/18 07:35 [place] % (Auto) 3.2 % (0.0-10.0) 04/14/18 07:35 Eos % (Auto) 0.0 % (0.0-4.0) 04/14/18 07:35 Baso % (Auto) 0.2 % (0.0-2.0) 04/14/18 07:35 Neut # (Auto) 10.0 K/uL (1.8-7.0) H 04/14/18 07:35 Lymph # (Auto) 0.7 K/uL (1.0-4.3) L 04/14/18 07:35 [place] # (Auto) 0.4 K/uL (0.0-0.8) 04/14/18 07:35 Eos # (Auto) 0.0 K/uL (0.0-0.7) 04/14/18 07:35 Baso # (Auto) 0.0 K/uL (0.0-0.2) 04/14/18 07:35 Neutrophils % (Manual) 89 % (50-75) H 04/14/18 07:35 Band Neutrophils % 1 % (0-2) 04/14/18 07:35 Lymphocytes % (Manual) 7 % (20-40) L 04/14/18 07:35 Monocytes % (Manual) 3 % (0-10) 04/14/18 07:35 Platelet Estimate Slightly increased (NORMAL) H 04/14/18 07:35 Hypochromasia (manual) Slight 04/14/18 07:35 Poikilocytosis (manual Slight 04/14/18 07:35 Anisocytosis (manual) Slight 04/14/18 07:35 Tear Drop Cells Slight 04/13/18 10:57 Ovalocytes Slight 04/14/18 07:35 PT 10.6 SECONDS (9.7-12.2) 04/11/18 19:30 INR 1.0 04/11/18 19:30 APTT 32 SECONDS (21-34) 04/11/18 19:30 D-Dimer, Quantitative 331 ng/mlDDU (0-243) H 04/09/18 12:16 Puncture Site Ao 04/12/18 16:45 pCO2 40 mm/Hg (35-45) 04/12/18 16:45 pO2 34 mm/Hg (30-55) 04/12/18 16:50 HCO3 25.9 mmol/L (21-28) 04/12/18 16:45 ABG pH 7.42 (7.35-7.45) 04/12/18 16:45 ABG Total CO2 27.1 mmol/L (22-28) 04/12/18 16:45 ABG O2 Saturation 97.1 % (95-98) 04/12/18 16:45 ABG Base Excess 1.3 mmol/L (-2.0-3.0) 04/12/18 16:45 ABG Hemoglobin 12.4 g/dL (11.7-17.4) 04/12/18 16:45 ABG Carboxyhemoglobin 2.1 % (0.5-1.5) H 04/12/18 16:45 POC ABG HHb (Measured) 2.8 % (0.0-5.0) 04/12/18 16:45 ABG Methemoglobin 1.1 % (0.0-3.0) 04/12/18 16:45 Pardeep Test Na 04/12/18 16:45 ABG Potassium 3.8 mmol/L (3.6-5.2) 04/09/18 12:32 VBG pH 7.37 (7.32-7.43) 04/12/18 16:50 VBG pCO2 46 mmHg (40-60) 04/12/18 16:50 VBG HCO3 24.6 mmol/L 04/12/18 16:50 VBG Total CO2 28.0 mmol/L (22-28) 04/12/18 16:50 VBG O2 Sat (Calc) 67.3 % (40-65) H 04/12/18 16:50 VBG Base Excess 0.8 mmol/L (0.0-2.0) 04/12/18 16:50 VBG Potassium 4.0 mmol/L (3.6-5.2) 04/12/18 16:50 A-a O2 Difference 28.0 mm/Hg 04/12/18 16:45 Respiratory Index 0.4 04/12/18 16:45 Hgb O2 Saturation 94.0 % (95.0-98.0) L 04/12/18 16:45 Sodium 139.0 mmol/l (132-148) 04/12/18 16:50 Chloride 104.0 mmol/L (98-107) 04/12/18 16:50 Glucose 201 mg/dl (65-105) H 04/12/18 16:50 Lactate 1.5 mmol/L (0.7-2.1) 04/12/18 16:50 FiO2 21.0 % 04/12/18 16:50 Sodium 137 mmol/L (132-148) 04/14/18 07:35 Potassium 4.2 mmol/L (3.6-5.2) 04/14/18 07:35 Chloride 99 mmol/L (98-107) 04/14/18 07:35 Carbon Dioxide 28 mmol/L (22-30) 04/14/18 07:35 Anion Gap 14 (10-20) 04/14/18 07:35 BUN 33 mg/dL (7-17) H 04/14/18 07:35 Creatinine 0.9 mg/dL (0.7-1.2) 04/14/18 07:35 Est GFR ( Amer) > 60 04/14/18 07:35 Est GFR (Non-Af Amer) > 60 04/14/18 07:35 POC Glucose (mg/dL) 289 mg/dL (65-110) H 04/12/18 21:39 Random Glucose 243 mg/dL (65-105) H 04/14/18 07:35 Calcium 8.7 mg/dl (8.6-10.4) 04/14/18 07:35 Phosphorus 4.5 mg/dL (2.5-4.5) 04/12/18 07:40 Magnesium 2.0 mg/dL (1.6-2.3) 04/12/18 07:40 Total Bilirubin 0.5 mg/dL (0.2-1.3) 04/14/18 07:35 AST 10 U/L (14-36) L 04/14/18 07:35 ALT 24 U/L (9-52) 04/14/18 07:35 Alkaline Phosphatase 70 U/L (38-126) 04/14/18 07:35 Total Creatine Kinase 59 U/L (30-135) 04/09/18 12:16 CK-MB (Mass) 3.23 ng/mL (0.0-3.38) 04/09/18 12:16 Troponin I 0.0150 ng/mL (0.00-0.120) 04/11/18 11:00 NT-Pro-B Natriuret Pep 4540 pg/mL (0-900) H 04/09/18 12:16 Total Protein 6.3 g/dL (6.3-8.3) 04/14/18 07:35 Albumin 3.7 g/dL (3.5-5.0) 04/14/18 07:35 Globulin 2.6 gm/dL (2.2-3.9) 04/14/18 07:35 Albumin/Globulin Ratio 1.4 (1.0-2.1) 04/14/18 07:35 Arterial Blood Potassium 3.8 mmol/L (3.6-5.2) 04/09/18 12:32 Venous Blood Potassium 4.0 mmol/L (3.6-5.2) 04/12/18 16:50 - Hospital Course Hospital Course: This patient is a 57 year old female with a past medical history of impaired glucose tolerance, HTN, HLD, and CVA w/ left sided residual weakness who present ed with complaints of worsening shortness of breath for 1 week. Patient stated she smelled some mold in the refrigerator and the next day started to feel short of breath. She denies any sick contacts or orthopnea. She did travel to [place] recently with a friend. Patient does admit to a 43 year smoking history. She smoked about a half a pack a day since she was 14 years old and recently reduced her smoking to about 4 cigarettes daily. Patient was evaluated by her PMD and was prescribed albuterol and given a steroid shot without improvement of her symptoms. Patient was also given steroid tablets but was told not to take it by the pharmacist. Today she states her shortness of breath is much improved. Hospital course: Patient was admitted on 04/09/18 for shortness of breath. Chest xray at admission showed moderate interstitial prominence may reflect infection or edema; cardiomegaly. D dimer was found to be elevated and CT angio was ordered and negative for PE. Chest CT was then ordered and showed cardiomegaly. mild emphysema; lung nodule; hepatic cyst. Echo was ordered and showed LVEF 15%, severe systolic dysfunction, global hypokinesis in LV, moderate MR. Transactional Attorney, Dr. Lucio, was consulted and performed a cardiac cath on sunday04/12/18, which showed nonischemic; EF 10-15%. Per Dr. Lucio, the patient required a life vest and reevaluation for ICD in 3 months on maximum therapy. Patient was started on losartan 100mg PO daily, coreg 25mg po bid, spironolactone 25mg po daily, aspirin 81mg po daily, lasix 40mg po bid and crestor 10mg po hs. Lisinopril was discontinued due to increased risk of lung cancer. Business Initiatives Manager from [employer] fitted the patient for a vest and provided full instructions on 04/13/18. Patient history of IGT, HLD, iron deficiency anemia, and insomnia were monitored and managed throughout hospital course. Patient is stable for discharge to home with life vest and on maximum therapy per Dr. Lucio and Dr. Yi. Patient must continue the newly prescribed medications, must wear the life vest, and must follow up with PMD and hand bulldozer within one week of discharge. This is a brief summary of the hospital course. Please see EMR for more details. Discharge Exam - Additional Findings Additional findings: - Constitutional Appears: No Acute Distress - Head Exam Head Exam: ATRAUMATIC, NORMAL INSPECTION - Eye Exam Eye Exam: EOMI - ENT Exam ENT Exam: Mucous Membranes Moist - Respiratory Exam Respiratory Exam: Rales, NORMAL BREATHING PATTERN. absent: Rhonchi, Wheezes, Respiratory Distress - Cardiovascular Exam Cardiovascular Exam: REGULAR RHYTHM, +S1, +S2, [employer] in place - GI/Abdominal Exam GI & Abdominal Exam: Soft, Normal Bowel Sounds. absent: Distended, Firm, Tenderness - Extremities Exam Extremities Exam: Pedal Edema (LLE; wears foot brace due to foot drop (2/2 to CVA)). absent: Calf Tenderness, Tenderness - Neurological Exam Neurological Exam: Alert, Awake - Psychiatric Exam Psychiatric exam: Normal Affect, Normal Mood - Skin Skin Exam: Intact, Normal Color, Warm Discharge Plan - Discharge Medications Prescriptions: Albuterol/Ipratropium [Combivent Respimat] 1 puff IH DAILY 30 Days inhaler Carvedilol [Coreg] 25 mg PO BID #60 tab Furosemide [Lasix] 40 mg PO BID #60 tab Losartan [Cozaar] 100 mg PO DAILY #30 tab Nicotine 14 mg/24 hr [Nicoderm CQ] 1 patch TD DAILY #30 patch Prednisone 40 mg PO DAILY #5 tablet Rosuvastatin Calcium [Crestor] 10 mg PO HS #30 tab Spironolactone [Aldactone] 25 mg PO DAILY #30 tab - Follow Up Plan Condition: STABLE Disposition: HOME/ ROUTINE Instructions: Heart Healthy Diet, Quitting Smoking for Older Adults, Smoking: Not Just Harmful to Your Lungs and Heart, Diabetes Exchange Diet, Cardiac Catheterization (DC), Shortness of Breath (Dyspnea) (DC), Diabetes Diet , Quitting Smoking, Carvedilol, Furosemide, Losartan, Nicotine, Prednisone, Medical Devices for Congestive Heart Failure (CHF), Rosuvastatin, Spironolactone, Diabetes and Diet, Heart Failure (DC), Heart Failure (GEN) Additional Instructions: Patient is stable for discharge to home per Dr. Yi and Dr. Lucio. Patient must discontinue lisinopril. Patient must take new medications as prescribed: 1. Losartan 100mg PO daily- take 1 tablet daily 2. Spironolactone 25mg PO daily- take 1 tablet daily 3. Lasix 40mg PO BID- take 1 tablet twice a day 4. Coreg 25mg PO BID- take 1 tablet twice a day 5. Aspirin 81mg PO daily- take 1 tablet daily Patient fitted and provided with [employer]. Patient was given full and instruction and fully understands. Patient must follow up with hand bulldozer, Dr. Lucio, within 1 week of discharge. Patient must follow up with PMD, Dr. Gutierrez, within 1 week of discharge. If symptoms worsen or reoccur, patient should return to the nearest ER. Referrals: Lennox Gutierrez MD [Staff Provider] - Rian Lucio MD [Staff Provider] -
--- NOTE | 2018-04-15 08:25 | CARD ---
APPROVED REPORT Date of service: 04/10/2018 EKG Measurement Heart [id number] <Conclusion> Sinus tachycardia Possible Left atrial enlargement T wave abnormality, consider lateral ischemia Abnormal ECG
[2018-04-17 18:45] VITALS: O2SAT 96
--- NOTE | 2018-04-18 15:05 | PCM.HF ---
Heart Failure Core Measure - Heart Failure Ejection Fraction: Less Than 40 % Left Ventricular Function to be assessed after discharge: Yes MORRIS Inhibitor Prescribed: No Contraindication/Reason for not providing: ARB prescribed per Billing Clerk Beta-Vipul Prescribed: Carvedilol Angiotensin II Receptor Vipul Prescribed: Yes AnticoagulationTherapy for Atrial Fibrillation/Atrialflutter: No Contraindication/Reason for not providing: No afib/aflutter Aldosterone Antagonist Prescribed: Yes Hydralazine Nitrate Prescribed: No Contraindication/Reason for not providing: Not indicated - Follow up Will be discharged to: Home Follow Up Date (must be within 7 days from discharge): 04/24/18
--- NOTE | 2018-04-23 10:10 | PQF ---
PROVIDER RESPONSE TEXT: Systolic acute on chronic cause dm,htn REVIEWER QUERY TEXT: CHF Acuity and Type Congestive Heart Failure is documented in the Medical Record. Please document the type and acuity (in cludes probable or suspected) Such as: Type: -- Systolic -- Diastolic -- Combined -- Other, please specify Acuity: -- Acute -- Chronic -- Acute on chronic -- Other, please specify Also please document the underlying cause of the CHF (includes probable or suspected) The patient's Clinical Indicators include: Pt. admitted with SOB. Echo showed 15%, severe systolic dysfunction, global hypokinesis in LV. Dr. Rach austin performed a Cardiac cath which showed nonischemic; EF 10 -15% Query created by: Diamond Cai on 04/16/2018 5:19 PM Electronically signed by: Lennox Gutierrez MD 04/23/2018 10:07 AM
== END 2018-04-14 18:55 | disposition home or self-care (01) | DRG 544 ==
LOC: C.ER 11:21 → C.9E 16:58 → C.6T 17:20
PROVIDERS: ADMIT Internal Medicine Pulmonary Disease; ATTEND Internal Medicine Pulmonary Disease
PROC: B2111ZZ Fluoroscopy of Multiple Coronary Arteries using Low Osmolar Contrast (ICD-10-PCS; principal; 2018-04-12)
PROC: B2151ZZ Fluoroscopy of Left Heart using Low Osmolar Contrast (ICD-10-PCS; 2018-04-12)
PROC: 4A023N8 Measurement of Cardiac Sampling and Pressure, Bilateral, Percutaneous Approach (ICD-10-PCS; 2018-04-12)
DX: I13.0 Hypertensive heart and chronic kidney disease with heart failure and stage 1 through stage 4 chronic kidney disease, or unspecified chronic kidney disease (principal); I50.23 Acute on chronic systolic (congestive) heart failure; E11.22 Type 2 diabetes mellitus with diabetic chronic kidney disease; J44.1 Chronic obstructive pulmonary disease with (acute) exacerbation; N18.9 Chronic kidney disease, unspecified; K76.89 Other specified diseases of liver; I25.10 Atherosclerotic heart disease of native coronary artery without angina pectoris; I25.5 Ischemic cardiomyopathy; E78.5 Hyperlipidemia, unspecified; F17.210 Nicotine dependence, cigarettes, uncomplicated; I69.354 Hemiplegia and hemiparesis following cerebral infarction affecting left non-dominant side; Z79.84 Long term (current) use of oral hypoglycemic drugs; Z87.440 Personal history of urinary (tract) infections